=== PATIENT | female | born 1940 | race Caucasian/White ===

== ENCOUNTER 2023-06-16 01:19 | Inpatient (IN) | payer MEDICARE, OTHER, SELFPAY ==
[2023-06-15] VITALS (7 sets, daily range): BP systolic 153–170; BP diastolic 75–86; BMI 33.8
--- NOTE | 2023-06-15 22:31 | EDRN ---
[place] alert called at [address] Perez pt transported to CT on EMS stretcher at 2226.
--- NOTE | 2023-06-15 22:37 | ED.CVA ---
History of Present Illness
General
Chief Complaint: CVA/TIA Symptoms
Source: family (Daughter, son)
Exam Limitations: none
Time Seen by Provider: 06/15/23 22:30
Nursing documentation reviewed up to this point in time: agreed with
Onset of Stroke Symptoms
Onset of symptoms known: Yes
Date of onset of symptoms: 06/15/23
Time of onset of symptoms: 20:30
Time pt last seen normal is known: Yes
Date last time pt seen normal: 06/15/23
Time last time pt seen normal: 21:00
Travel History
Have you had any contact with someone who has COVID-19?: No
Do you have any symptoms of coronavirus? Fever > 100 degrees, chills, cough, shortness of breath, sore throat, loss of taste or smell, muscle aches, or headache?: No
History of Present Illness
History of Present Illness:
The patient is a 82-year-old female with a past medical history on atrial fibrillation who presents with paramedics for left-sided weakness that started at 8:30 PM this evening. Family reports that she just had a laminectomy done at [facility] this
past , which was 3 days ago. The laminectomy was done at L3-L4, and L4, L5. The family reports she is generally on Eliquis but has not had the Eliquis for at least 5 days. They report she has not restarted it since the surgery. Her
daughter reports that she last saw her mother normal at around 8:30 PM and around 9:00, she noticed severe weakness on the left side of the patient's body. Her daughter reports that briefly, she was able to move her left arm but then she was unable
to do so. Patient arrives with paramedics and is flaccid on the left. She has a gaze preference to the right. Stroke alert called
Past History
Past History
ED Past Medical History: Arrthythmia, HTN, Hypercholesterolemia and Hypothyroidism
ED Past Surgical History: Orthopedic
Social History
Tobacco: Non-smoker
Alcohol: Other
Drug: None
Personal: Other
Living: with family
Employment: Retired
Family History
Family History: Other
Phy Exam
Physical Exam
Physical Exam:
Physical Exam
General: Gaze preference to the right
Neck: supple.
Heart: s1/s2 regular rate and rhythm,
Lungs: no acute respiratory distress.
Abdomen: Soft, nontender
Neuro: alert. Left facial droop. No movement of left arm and left leg. Gaze preference to the right. Neglect to the left. Diminished sensation of left cheek, left arm and left leg
Skin: no rash
Psychiatric: well kept. interactive and cooperative
Extremities: no edema. no calf tenderness. negative homans. good distal pulses
Scores
NIH Stroke Score
Level of Consciousness: 0 - Alert
LOC Questions: 0-Answers both correctly
LOC Commands: 0-Performs both correctly
Best Horizontal Gaze: 2-Total gaze palsy
Visual Gutierrez: 1=Partial hemianopia
Facial Palsy: 2=Partial paralysis
Motor - Right Arm: 0=No drift 10 seconds
Motor - Left Arm: 4=No movement
Motor - Right Le-No drift 5 seconds
Motor - Left Le-No movement
Limb Ataxia: 0-Absent
Sensation: 1-Mild loss
Best Language: 1-Mild aphasia
Dysarthria: 0-Normal
Extinction and Inattention: 2-Total tiffany inattention
Total Score:: 17
MRS Score
Modified [facility] Scale (mRS): Moderately severe disability. Unable to attend to bodily needs/walk.
Score: 4
Course
Orders/Labs/Results
Orders:
Orders
06/15/23 22:30
CT Head W/o Cont STROKE ALERT Urgent
Comment:
Reason For Exam: L side flaccid
CT Head/Neck Ang STROKE ALERT Urgent
Comment:
Reason For Exam: L side flaccid
06/15/23 22:31
Electrocardiogram (*1) Urgent
Reason for Study: TIA/Stroke
EKG- Treatment ONCE
06/15/23 22:55
Tenecteplase [Tnkase] 22 mg Syringe [Syringe Non-Pump] 0 ml IV NOW
Provider explained risk/benefits to patient &/or caregiver?: Yes
06/15/23 22:57
Complete Blood Count/With Diff Urgent
Comprehensive Metabolic Panel Urgent
PTT Urgent
Prothrombin Time Urgent
Abnormal Lab Results
06/15/23
22:57
WBC 11.3 H 10^3/uL
(4.8-10.8)
RBC 3.80 L 10^6/uL
(4.20-5.40)
Hgb 11.9 L g/dL
(12.0-16.0)
Hct 35.3 L %
(37.0-47.0)
MCH 31.3 H pg
(27.0-31.0)
Abs Immat Gran (auto) 0.1 H 10^3/uL
(0-0.05)
Absolute Neuts (auto) 7.6 H 10^3/uL
(1.4-6.5)
Absolute Monos (auto) 1.7 H 10^3/uL
(0.1-0.6)
Lymphocytes % 16.6 L %
(20.5-51.1)
Monocytes % 14.6 H %
(1.7-9.3)
Sodium 132 L mmol/L
(135-145)
BUN 34 H mg/dl
(7-17)
Glucose 105 H mg/dl
(70-99)
AST 39 H U/L
(14-36)
Alkaline Phosphatase 36 L U/L
(38-126)
06/15/23 22:57
06/15/23 22:57
Vital Signs
Initial and Last Documented VS:
Initial Vital Signs
BP
170/86
06/15/23 23:00
Last Documented Vital Signs
Temp Pulse Resp BP Pulse Ox
97.9 F 74 24 160/85 97
06/15/23 23:03 06/15/23 23:45 06/15/23 23:45 06/15/23 23:37 06/15/23 23:53
MDM/Problems Addressed
Differential Diagnosis Includes:
Acute ischemic stroke, intracranial hemorrhage, meningitis
MDM/Problems Addressed:
Patient presents with acute left body weakness
Chronic conditions affecting care: Arrhythmia
Acute Exacerbation and/or Progression of Chronic Illness: HTN
*Radiology
Radiology exam reviewed: radiology read reviewed
*Pulse Oximetry
Patient hypoxic: no
*[place] Man Interpretation
Rate: normal
Interpretation: normal
Rhythm: sinus
*Critical Care Note
Total Time (30-74mins, 75-104mins- exclusive of procedures): 45 minutes
comment:
45 minutes of critical care given to the patient including frequent reassessments of her neurological status, speaking to the family, reviewing the patient's CAT scan and CTA as well as speaking to the hospitalist and neurologist
Patient Management
Discussion with other providers: Hospitalist and Other (Spoke to Dr. Rodriguez from neurology about patient condition)
Escalation/DeEscalation of care consider admission/obs:
I spoke extensively to the patient's daughter and son about the risk and benefit of giving TNK. They understand there is a risk of life-threatening bleeding, such as an intracranial hemorrhage that could cause permanent and disability. They
still want to proceed with the TNK. Dr. Rodriguez is comfortable giving the TNK even with patient's recent laminectomy. Patient has had not had Eliquis for about 1 week
ED Attending Note
-
Portions of this chart may have been created with voice recognition software.� Occasional wrong word or��sound alike� substitutions may have occurred due to the inherent limitations of voice recognition software.
Discharge Plan
Departure
Patient Disposition: Admit
Date of Disposition: 06/15/23
Time of Disposition: 23:07
Admit to: ICU
Presentation/result/management discussed w/ accepting MD/DO: Hospitalist
Patient with high blood pressure during this ER visit?: Yes
Condition: Critical
Covid-19: Not Applicable
Discharge Problem:
Acute ischemic stroke
Prescriptions:
No Action
atorvastatin 40 mg Tablet
40 mg PO DAILY
sotalol 80 mg Tablet
80 mg PO BID
levothyroxine 25 mcg Tablet
25 mcg PO DAILY
metoprolol succinate 25 mg Tablet Extended Release 24 Hr
25 mg PO BID
Calcium + Vitamin D 600 mg calcium- 200 unit Tablet
PO
Fish Oil Capsule
PO
Eliquis 5 mg Tablet
5 mg PO BID
Centrum
Interventions
Interventions:
ED- Fall Risk Assessment Last Done: 06/15/23 23:53
ED- Pulmonary Assessment Last Done: 06/15/23 23:53
ED- Neurological Assessment Last Done: 06/15/23 23:11
ED- Cardiac Assessment Last Done: 06/15/23 23:53
[2023-06-15 23:02] LABS: % Basophils 0.2 % (0-2); % Eosinophils 0.5 % (0-6); % Immature Granulocytes 0.4 % (0-0.5); % Lymphocytes 16.6 % (20.5-51.1); % Monocytes 14.6 % (1.7-9.3); % Neutrophils 67.7 % (42.2-75.2); Absolute Eosinophils 0.1 10^3/uL (0-0.7); Absolute Immature Granulocytes 0.1 10^3/uL (0-0.05); Absolute Lymphocytes 1.9 10^3/uL (1.2-3.4); Absolute Monocytes 1.7 10^3/uL (0.1-0.6); Absolute Neutrophils 7.6 10^3/uL (1.4-6.5); Hematocrit 35.3 % (37.0-47.0); Hemoglobin 11.9 g/dL (12.0-16.0); Mean Corp Hgb Conc. 33.7 g/dL (33.0-37.0); Mean Corpuscular Hgb 31.3 pg (27.0-31.0); Mean Corpuscular Volume 92.9 fL (81.0-99.0); Mean Platelet Volume 10.2 fL (7.4-10.4); Nucleated Red Blood Cells % 0 %; Platelet Count 162 10^3/uL (130-400); Red Cell Dist. Width 13.7 % (11.5-14.5); White Blood Cell Count 11.3 10^3/uL (4.8-10.8)
[2023-06-15 23:14] LABS: INR 1.05; PT 13.5 Sec (11.4-14.6)
[2023-06-15 23:15] LABS: ALT (SGPT) 14 U/L (0-35); APTT 23.9 Sec (23.4-35.0); AST (SGOT) 39 U/L (14-36); Albumin 3.5 g/dl (3.5-5.0); Alkaline Phosphatase 36 U/L (38-126); Blood Urea Nitrogen 34 mg/dl (7-17); Calcium 8.6 mg/dl (8.4-10.2); Carbon Dioxide 27 mmol/L (22-30); Chloride 100 mmol/L (98-107); Estimated Creatinine Clearance 48 ml/min; Glucose 105 mg/dl (70-99); Potassium 4.5 mmol/L (3.5-5.1); Sodium 132 mmol/L (135-145); Total Bilirubin 0.6 mg/dl (0.2-1.3); Total Protein 6.3 g/dl (6.3-8.2); eGFR > 60.00
[2023-06-15] MEDS: TNKASE 4.40000000000000036 MG IV (23:20)
[2023-06-16] VITALS (60 sets, daily range): BP systolic 107–193; BP diastolic 52–107; BMI 33.8; BMI 30.6
--- NOTE | 2023-06-16 00:10 | HPS.HSE ---
Family Physician
-
Family Physician: Stevie Valadez
Chief Complaint
-
Left Sided Weakness
History of Present Illness
Patient is an 82y F with PMH significant for hypertension and CAD who presents to ED complaining of left sided weakness. History obtained from patient and the family at the bedside.
Patient was recently hospitalized at [facility] where she underwent lumbar laminectomy (L3 - L5) on . She was discharged from the hospital yesterday and came home with her daughter who lives in the [facility]. Yesterday the patient felt
very well. Today, she was more fatigued and had more lower back discomfort. She was watching TV this evening with her daughter. Around 9:30 PM, daughter noted that patent was massaging her L hand and seemed somewhat agitated. She fell in and out
of sleep. Daughter attempted to wake her but had some difficulty. When patient did wake she was noted to have slurred speech and was not moving her L arm. Her gaze was unfocused. Daughter called 911 and patient was brought to the ED for further
evaluation.
Stroke alert was activated. CT imaging in the ED was essentially unremarkable.
Case was reviewed with Nerology and TNKase was administered in the ED.
At present, patient has R gaze preference and degree of L hemineglect. She has continued severe L weakness - though she has started to move the LUE to a small degree.
Patient was diagnosed with A-Fib in March 2023. She has been on DOAC with Eliquis since that time.
Patient's last dose of Eliquis was 06/08/23 - she then held it in preparation for her back surgery. She is scheduled to restart it on 06/20/23.
Medical History
Past Medical History
Past Medical History: Reports Other
Additional Past Medical History:
ASCVD
Hypertension
Hypothyroidism
Paroxysmal Atrial Fibrillation
Endometrial Cancer
Lumbar DDD
Past Surgical History: Reports Other
Additional Past Surgical History:
CABG x 3
Cataracts
CHANTELLE
Lumbar laminectomy (06/13/23)
Social History
Tobacco: Non-smoker
Alcohol: None
Drug: None
Family History
Family History: Other (Father: Prostate Cancer Mother: Multiple Myeloma)
Allergies / Home Medications
Allergies reflects when Allergies were last updated in [facility].
Home Medications with original date entered in [facility]
Allergy/Medication List:
Allergies
Allergy/AdvReac Type Severity Reaction Status Date / Time
Sulfa (Sulfonamide Allergy Unknown Verified 06/15/23 22:33
Antibiotics)
Home Medications
Centrum 06/15/23
apixaban 5 mg tablet (Eliquis) 5 mg PO BID 06/15/23
atorvastatin 40 mg tablet 40 mg PO DAILY 06/15/23
calcium carb-ergocalciferol (vit D2) 600 mg calcium-200 unit tablet tab PO 06/15/23
levothyroxine 25 mcg tablet 25 mcg PO DAILY 06/15/23
metoprolol succinate 25 mg tablet,extended release 24 hr 25 mg PO BID 06/15/23
omega-3 fatty acids PO 06/15/23
sotalol 80 mg tablet 80 mg PO BID 06/15/23
Review of Systems
-
History Source: Patient
A 12 point ROS was completed and negative except as noted: Yes
Constitutional: Denies Fever or Chills
Respiratory: Denies Cough or Trouble Breathing
Cardiac: Denies Chest Pain or Palpitations
Abdomen/GI: Denies Abdominal Pain, Nausea, Vomiting or Diarrhea
Musculoskeletal: Reports Other (Back Pain); Denies Joint Pain or Edema
Neurological: Reports Weakness and Numbness; Denies Headache
Psych: Denies Depression or Anxiety
Physical Exam
Vital Signs
Vital Signs
Temp Pulse Resp BP Pulse Ox
97.9 F 74 24 160/85 97
06/15/23 23:03 06/15/23 23:45 06/15/23 23:45 06/15/23 23:37 06/15/23 23:53
Physical Exam
General: Other (82y F in no acute distress. Hard of hearing. Evident R gaze preference and L hemineglect.)
HEENT: PERRLA and Other (Dry MM.)
Respiratory: Clear; No Wheezes, Rales or Rhonchi
Cardiac: S1/S2, Regular Rhythm and Murmur (II/ CONG)
GI: Soft, Non Tender, Non Distended and Normal Bowel Sounds
Musculoskeletal: No Clubbing, No Cyanosis and No Edema
Skin: Other ([place] in place over lumbar incision. No significant strikethrough.)
Neuro: Other (Dense L sided weakness. Some movement of the L arm / hand. Strength 0/5 in the LLE. Decreased sensation in the LLE > LUE.)
Laboratory Results
-
06/15/23 22:57
06/15/23 22:57
Laboratory Results
PT 13.5 Sec (11.4-14.6) 06/15/23 22:57
INR 1.05 06/15/23 22:57
APTT 23.9 Sec (23.4-35.0) 06/15/23 22:57
Total Bilirubin 0.6 mg/dl (0.2-1.3) 06/15/23 22:57
AST 39 U/L (14-36) H 06/15/23 22:57
ALT 14 U/L (0-35) 06/15/23 22:57
Alkaline Phosphatase 36 U/L (38-126) L 06/15/23 22:57
Impression/Plan
-
A/P: Patient is an 82y F with PMH significant for ASCVD, A-Fib and hypertension who presents to ED for evaluation of L sided weakness.
Acute Right Sided CVA with Dense Left Hemiparesis
- Admit to ICU for further evaluation and treatment.
- CT and CTA done in the ED are essentially unremarkable.
- TNKase administered in the ED.
- Monitor closely in the ICU.
- Follow serial neuro exams.
- Neuro evaluation, Solution Architect evaluation, etc.
- Follow for any new / worsening symptoms.
- PT / OT / Speech and PM&R evaluations.
- MRI 24 hours post-TNKase.
- Check fasting lipids, Hgb A1C, Echo.
- With history of A-Fib and recent interruption of Eliquis - ? embolic CVA.
Paroxysmal Atrial Fibrillation
- Monitor on telemetry.
- Continue current metoprolol and sotalol dosing.
- Continue to hold Eliquis (last dose was 06/07).
- Check Echo as noted above.
ASCVD
- Prior history of CAD s/p remote CABG.
- No recent symptoms of chest pain, etc.
- Continue statin therapy. Update lipid panel and adjust dosing if needed.
Lumbar DDD
s/p Lumbar Laminectomy
- s/p surgery done at [facility] on 06/13/23.
- Monitor for any bleeding or other changes at surgical site.
- Follow neurologic exam closely for any evidence of bilateral LE symptoms, etc.
Hypothyroidism
- Continue current T4 replacement.
DVT Prophylaxis: SCDs
Code Status: Full
[2023-06-16] MEDS: ZOFRAN 4 MG IV (03:51)
--- NOTE | 2023-06-16 04:30 | PTCARENOTE ---
~9833-9089: Patient arrived to the unit on a stretcher. The patient is awake and oriented x3. Pupils are +2 and sluggish. Stoke/NIH assessment performed with ED RN, Sandra. Patient's NIH 15. Patient has left facial droop, left arm weakness with
trace movement , left leg is unable to move, mild aphasia and dysarthria, some sensory loss, some visual and gaze loss. Atrial fibrillation on the monitor. Weak pulses to bilaterally. Patient verbalized that she is feeling sick. The patient then
started to vomit spence output-100 cc. BP 191/90, and RR 21. Arabella Burgos CRNP made aware and is at the bedside. Zofran and head CT ordered. Coarse breath sounds 1/[address] way up. No cough. The patient is on 2L/O2 nc with SpO2 at 97%. abdomen is round
and obese. Patient cleansed with CHG wipes. Purewick placed. Call ibrahim s within reach.
0340: Patient returned from CT scan. Assessment unchanged from the previous. Safety measures maintained.
--- NOTE | 2023-06-16 04:36 | W.PN.UPDATE ---
Update Note
Progress Note Update
0300- Patient arrived to the ICU and started vomiting, SBP 190s. Left facial droop, hemiparesis, left sided neglect, NIHSS 15. STAT Ct scan of the head ordered for vomiting post TNK to rule out bleed. Dr. Rodriguez, neurologist updated on patient's
vomiting and NIHSS, agreed with plan. Ct scan results: no hemorrhage noted.
[2023-06-16 05:58] LABS: Hematocrit 37.7 % (37.0-47.0); Hemoglobin 12.7 g/dL (12.0-16.0); Mean Corp Hgb Conc. 33.7 g/dL (33.0-37.0); Mean Corpuscular Hgb 31.1 pg (27.0-31.0); Mean Corpuscular Volume 92.4 fL (81.0-99.0); Mean Platelet Volume 10.1 fL (7.4-10.4); Platelet Count 230 10^3/uL (130-400); Red Blood Cell Count 4.08 10^6/uL (4.20-5.40); Red Cell Dist. Width 13.5 % (11.5-14.5); White Blood Cell Count 12.2 10^3/uL (4.8-10.8)
[2023-06-16 06:01] LABS: INR 1.02; PT 13.2 Sec (11.4-14.6)
[2023-06-16 06:02] LABS: APTT 30.1 Sec (23.4-35.0)
[2023-06-16 06:21] LABS: Blood Urea Nitrogen 31 mg/dl (7-17); Calcium 9.1 mg/dl (8.4-10.2); Carbon Dioxide 26 mmol/L (22-30); Chloride 105 mmol/L (98-107); Estimated Creatinine Clearance 52 ml/min; Glucose 109 mg/dl (70-99); HDL Cholesterol 61 mg/dl; LDL Cholesterol, Calculated 76 mg/dl; Magnesium 2.2 mg/dl (1.6-2.3); Phosphorus 4.2 mg/dl (2.5-4.5); Potassium 4.7 mmol/L (3.5-5.1); Sodium 136 mmol/L (135-145); Total Cholesterol 173 mg/dl (50-199); Triglyceride 182 mg/dl (10-149); Very Low Density Lipoprotein 36 mg/dl (0-30); eGFR > 60.00
--- NOTE | 2023-06-16 07:08 | PTCARENOTE ---
0600: Patient remains stable. Pt has trace movement with left arm and left leg. continues to be AAOx3. VSS.
0630: Pt unable to void since admission. Patient bladder scanned for 215 mL.
0650: Handoff report provided to incoming RN. Dual RN jessica/[facility] assessment completed.
--- NOTE | 2023-06-16 07:19 | CON.INTV ---
Consultation
Consultation Request
Date/Time Consultation Requested: 06/16/23
Date/Time Consultation Performed: 06/16/23
Performing Provider: Damaso
Reason for Consultation: ICU
Medical History
-
History of Present Illness:
Patient is a 82-year-old female with previous history of CAD, hypertension, PAF on Eliquis presenting to ED for complaints of left-sided weakness. She underwent recent lumbar laminectomy L3-L5 on 06/13/2023 at [facility] which was reportedly
uneventful. She was discharged home 06/15/2023 with development of increasing lethargy. On awakening, patient was noted to have acute onset slurred speech and left-sided weakness. She was brought in by her daughter. CT imaging in the ED negative
on prelim read. NIHSS was 17. TNK was administered in the ED based on symptoms. She is taking Eliquis for her atrial fibrillation which was held for surgery. She was not scheduled to resume it until 06/20/2023.
She is admitted to ICU post TNK for closer monitoring.
Past Medical History
Past Medical History: Other (see list below)
Social History
Tobacco: Non-smoker
Alcohol: None
Drug: None
Family History
Family History: Reviewed & Not Pertinent
Allergies / Home Medications
Allergies
Allergy/AdvReac Type Severity Reaction Status Date / Time
Sulfa (Sulfonamide Allergy Unknown Verified 06/15/23 22:33
Antibiotics)
Home Medications
Medication Instructions Recorded Confirmed Last Taken Type
Centrum 06/15/23 Unknown History
apixaban 5 mg tablet (Eliquis) 5 mg PO BID 06/15/23 06/15/23 Unknown History
atorvastatin 40 mg tablet 40 mg PO DAILY 06/15/23 06/15/23 Unknown History
calcium carb-ergocalciferol (vit tab PO 06/15/23 Unknown History
D2) 600 mg calcium-200 unit tablet
levothyroxine 25 mcg tablet 25 mcg PO DAILY 06/15/23 06/15/23 Unknown History
metoprolol succinate 25 mg 25 mg PO BID 06/15/23 06/15/23 Unknown History
tablet,extended release 24 hr
omega-3 fatty acids PO 06/15/23 Unknown History
sotalol 80 mg tablet 80 mg PO BID 06/15/23 06/15/23 Unknown History
Review of Systems
-
History Source: Patient
All other systems: Negative unless noted
Vitals / Labs / Diagnostic Testing
Vital Signs
Temp Pulse Resp BP Pulse Ox
98.5 F 72 14 139/69 96
06/16/23 03:00 06/16/23 07:07 06/16/23 07:07 06/16/23 07:07 06/16/23 07:07
Lab Data
06/16/23 05:38
06/16/23 05:38
Laboratory Results
06/15/23 06/16/23
22:57 05:38
PT 13.5 13.2
INR 1.05 1.02
APTT 23.9 30.1
Diagnostic Testing:
Physical Exam
-
HEENT: Normocephalic, Anicteric, Moist Mucous Membranes and Other (R gaze preference)
Cardiovascular: S1/S2 and Regular Rhythm
Respiratory: Clear and Non-Labored Respirations
GI: Soft, Non Distended and Non Tender
Neurology: Awake, Alert and Other (L sided weakness, inconsistently following commands, somewhat expressive aphasia/repetitive responses)
Skin: Warm and Dry
General: Comfortable and Other (NAD)
Assessment
-
Patient is a 82-year-old female with previous history of CAD, hypertension, PAF on Eliquis presenting to ED for complaints of left-sided weakness and lethargy post recent lumbar laminectomy on 06/13/2023 at [facility] (Eliquis on hold for procedure).
CT imaging in the ED negative; NIHSS was 17. TNK was administered. She is admitted to ICU post TNK for closer monitoring.
Acute CVA s/p TNK 06/16/23
Acute onset L sided weakness, slurred speech, R gaze preference
Recent procedure, L3-L5 Laminectomy @[facility] 06/13/23, Eliquis held
Mild leukocytosis
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
CAD s/p CABG x 3
Lumbar laminectomy (06/13/23)
Hypertension
Hypothyroidism
Paroxysmal Atrial Fibrillation
Endometrial Cancer s/p CHANTELLE
Lumbar DDD
Cataracts
Plan
Acute CVA s/p TNK, NIHSS initially 17
Still having L sided paralysis, R gaze preference
Possible expressive aphasia as her responses are limited/repetitive
Denies pain at this time.
Pain/sedation: PRN
RASS goals: [address] reviewed
Repeat CT per team, Neuro following
PT/OT
Hemodynamically stable, not requiring pressors.
Cardiac history reviewed--HTN, CAD, PAF off Eliquis
No prior ECHO for review
Resume home meds as able, BP management post CVA
Monitor on telemetry
Oxygen needs: stable on room air
Prior history of lung disease: none
Supplemental O2 as indicated to maintain sats > 89%
CXR/CT reviewed indicating NAD, wide mediastinum possibly falsely due to low lung volumes
No chest pain, or need for further imaging
NPO, resume diet when able
Aspiration precautions, HOB > 30 degrees
Speech therapy eval
Lawn Specialist recommendations
May need DHT if not improving
GI prophylaxis if indicated for mechanical ventilation >48 hours, prior history of GERD, stress ulcer formation in the critically ill
Creat at baseline, no history of renal disease
Void trials
Follow urine output, critical I/Os
Replete electrolytes as needed
No signs/symptoms suspicious for infectious etiology at this time
Observe off antibiotics for now
Follow fever trend, WBC count
CBC stable, no signs of bleeding or coagulopathy.
DVT prophylaxis as assessed based on risk, including mechanical SCDs
Can transfuse if indicated for Hb <7, plt < 10
INR WNL
No prior h/o diabetes
Monitor accuchecks PRN/SS coverage if needed
H/o hypothyroidism, can continue on home synthroid dose
We will follow
Diagnostic Data
Chest X-Ray: low lung volumes/widened mediastinum; no comparative films
CT Scan:
Echo:
PFT's:
Reports and relevant images were personally reviewed.
-----
Critical Care time 55 mins -- The patient is admitted for acute critical illness for the treatment of vital organ failure and/or prevention of further life-threatening conditions. Total care includes time spent in review of history, physical exam,
medications, hemodynamic/ventilator parameters, laboratory data, imaging and discussion with house staff, pharmacy, respiratory therapy, physics department chair, and nursing.
[2023-06-16] MEDS: SYNTHROID 25 MCG PO (08:57)
[2023-06-16] MEDS: BETAPACE 80 MG PO ×2 (08:57→21:10)
[2023-06-16] MEDS: TOPROL XL 25 MG PO ×2 (08:57→21:10)
[2023-06-16] MEDS: LIPITOR 40 MG PO (08:57)
--- NOTE | 2023-06-16 09:13 | PTCARENOTE ---
pt wakes to name. douglas. states no pain. passed swallow eval. nihss done with night nurse as documented. left facial droop left arm leg min movement. slurred speech. left visual field cut. lack of sensation on left side. pt able to take pills
with water. pure wick in place.
--- NOTE | 2023-06-16 09:38 | CON.NEURO ---
Neuro Assessment/Plan
Assessment
IMPRESSIONS/RECOMMENDATIONS:
Abrupt onset left sided weakness following discontinuance of anticoagulant to undergo lumbar laminectomy
Most likely secondary to acute ischemic right MCA territory stroke
Treated with tenecteplase (TNK) last evening
Plan
� goal blood pressure over the next 24 hours of receipt of tenecteplase would be less than 180/105 mmHg, then normotension
� check MRI of the brain within 22-32 hours of TNK without contrast for localization of the stroke
� hold all antiplatelets, OAC meds, DOAC meds, heparinoids for 24 hours following TNK
� Continue atorvastatin 40 mg at bedtime
� goal blood glucose levels for patient would be less than 180 mg/dL
� Speech, PT, OT evaluations needed
� Physiatry consultation warranted
� DVT prophylaxis with sequential compression devices over next 24 hours, can be started on Enoxaparin subcutaneous for DVT prophylaxis beginning 24 hours after TNK provision.
� medical educational materials will be provided
Will continue to follow patient.
Consultation
Order
Date of Consultation: 06/16/23
Requesting Provider: Emergency department physician
Reason for Consult: Stroke alert
Subjective/Objective
Subjective Data
Date of Service: June 16, 2023
Right-handed
Patient was reportedly in her usual state of health until last evening at which time the patient was described as having sudden onset left-sided weakness. The patient had discontinued her usual apixaban 5 days ago to undergo a lumbar laminectomy at
[facility]. The patient did not restart her apixaban since that time. The procedure was performed 3 days ago. The patient has not had a prior episode which was similar. No known modifying factors. The patient herself is unable divide any
accompanying history.
Objective Data
Vital Signs
Temp Pulse Resp BP Pulse Ox
36.9 C 88 10 150/100 96
06/16/23 07:39 06/16/23 09:00 06/16/23 09:00 06/16/23 09:00 06/16/23 09:10
Lab Results
06/16/23 05:38
06/16/23 05:38
PT 13.2 Sec (11.4-14.6) 06/16/23 05:38
INR 1.02 06/16/23 05:38
APTT 30.1 Sec (23.4-35.0) 06/16/23 05:38
Sodium 136 mmol/L (135-145) 06/16/23 05:38
Potassium 4.7 mmol/L (3.5-5.1) 06/16/23 05:38
BUN 31 mg/dl (7-17) H 06/16/23 05:38
Glucose 109 mg/dl (70-99) H 06/16/23 05:38
Calcium 9.1 mg/dl (8.4-10.2) 06/16/23 05:38
Phosphorus 4.2 mg/dl (2.5-4.5) 06/16/23 05:38
LDL Cholesterol, Calc 76 mg/dl 06/16/23 05:38
Patient Allergies
Sulfa (Sulfonamide Antibiotics) Allergy (Verified 06/15/23 22:33)
Unknown
CVA Assessment
Onset of Stroke Symptoms
Onset of symptoms known: Yes
Date of onset of symptoms: 06/15/23
Time of onset of symptoms: 20:30
Time pt last seen normal is known: Yes
Date last time pt seen normal: 06/15/23
Time last time pt seen normal: 21:00
NIH Stroke Score
Level of Consciousness: 0 - Alert
LOC Questions: 1-Answers one correctly
LOC Commands: 1-Performs one correctly
Best Horizontal Gaze: 1-Partial gaze palsy
Visual Gutierrez: 3=Bilateral hemianopia
Facial Palsy: 0=Normal, symmetrical
Motor - Right Arm: 0=No drift 10 seconds
Motor - Left Arm: 2=Partial vs. gravity
Motor - Right Le-No drift 5 seconds
Motor - Left Le-None vs. gravity
Limb Ataxia: 0-Absent
Sensation: 0-Normal
Best Language: 0-No aphasia
Dysarthria: 0-Normal
Extinction and Inattention: 0-No abnormality
Total Score:: 11
Tenecteplase Contraindications
Inclusion and Exclusion criteria reviewed: Yes
IAT Contraindications: Imaging doesn't show large vessel occlusion as cause of stroke
Review of Systems
-
Unable to obtain full review of systems at this time due to: Other (Encephalopathy)
History Source: Patient
All other systems: Reviewed and negative
Neuro: Negative Dizzy or Headache
Physical Exam
-
General: No Apparent Distress, Appears Stated Age and Other (Overweight)
Eyes: OU Absent Papilledema, Round OU, Mcfarland Conjunctivae and No Ptosis
HEENT: Anicteric and Moist Mucous Membranes
Neck: Full Range of Motion
Respiratory: No Dyspnea
Cardiac: No JVD
GI: Non-distended
Skin: Unremarkable
Extremities: No Clubbing, No Cyanosis and No Edema
Psych: Negative Intact Judgement/Insight
Extended Neurological Exam
Mood & Affect: Mood Unremarkable and Affect Unremarkable
Attention Span & Concentration: Awake, Alert, Interactive and Moderate Difficulty with 2 Step Request
Memory: Able to Recall (own name) and Recalls Short Term (recent back surgery); Negative Unable to Recall Personal History
Tremor: Hand Tremor Absent and Head Tremor Absent
Involuntary Movement: None
Speech: Quality Unremarkable and Quantity Unremarkable
Cranial Nerve II: Left Eye: Pupillary Reactivity Unremarkable, Pupillary Size Unremarkable and Visual Gutierrez Reduced (On the left)
Cranial Nerve II: Right Eye: Pupillary Reactivity Unremarkable, Pupillary Size Unremarkable and Visual Gutierrez Reduced (On the left)
Cranial Nerves III, IV, : Extraocular Movement: Negative Extraocular Movement Full in all Directions (Mildly restricted with extreme left gaze conjugately; right gaze preference)
Cranial Nerve V: Facial Sensation: Intact to Light Touch
Cranial Nerve VII: Facial Symmetry: Normal Facial Symmetry
Cranial Nerve VIII: Hearing: Unremarkable Hearing to Normal Conversational Volume
Cranial Nerves IX, X: Palate Movement: Palate Elevation Symmetric
Cranial Nerve XI: Shoulder Shrug: Reduced on Left; Negative Reduced on Right
Cranial Nerve XII: Tongue Protusion: Midline
Muscle Strength, Overall: Reduced on Left (4 - out of 5 left upper extremity, 1 out of 5 left lower extremity)
Muscle Bulk & Tone: Bulk Unremarkable and Tone Unremarkable
Deep Tendon Reflexes: Absent Throughout
Touch Sensation: Unremarkable
Coordination: Unable to Assess (On the left); Negative Hepokr-ogdv-hhuuhc Testing Unremarkable (On the right)
Babinski Sign: Present on Right; Negative Present on Left
Gait & Station: Unable to Assess
Data Reviewed
-
CT Head: Report Reviewed
Labs: Report Reviewed
Reviewed with: Physician and Nurse
Old Records: Summarized
Medications
-
Active Medications
Generic Name Dose Route Start Last Admin
Trade Name Freq PRN Reason Stop Dose Admin
Acetaminophen 650 mg 06/16/23 04:23
Acetaminophen 325 Mg Tablet PO 07/14/23 04:22
Q4HPRN PRN
GARDUNO, mild pain, or temp >100.4F
Atorvastatin Calcium 40 mg 06/16/23 08:00 06/16/23 08:57
Atorvastatin (Lipitor) 40 Mg Tablet PO 07/14/23 07:59 40 mg
DAILY SANDRO Administration
Hydralazine HCl 5 mg 06/16/23 04:23
Hydralazine 20 Mg/Ml Vial IV 07/14/23 04:22
Q4HPRN PRN
BP > 180/105 mmHg
Levothyroxine Sodium 25 mcg 06/16/23 08:00 06/16/23 08:57
Levothyroxine 25 Mcg Tablet PO 07/14/23 07:59 25 mcg
DAILY SANDRO Administration
Metoprolol Succinate 25 mg 06/16/23 08:00 06/16/23 08:57
Metoprolol 25 Mg Extended Release Tablet PO 07/14/23 07:59 25 mg
BID SANDRO Administration
Sodium Chloride 0 flush 06/16/23 05:00
Sodium Chloride 0.9% (Flush) Syringe IV 07/14/23 04:59
PER PROTOCOL SANDRO
Sotalol HCl 80 mg 06/16/23 08:00 06/16/23 08:57
Sotalol 80 Mg Tablet PO 07/14/23 07:59 80 mg
BID SANDRO Administration
Home Medications
Medication Instructions Recorded
Centrum 06/15/23
apixaban 5 mg tablet (Eliquis) 5 mg PO BID 06/15/23
atorvastatin 40 mg tablet 40 mg PO DAILY 06/15/23
calcium carb-ergocalciferol (vit tab PO 06/15/23
D2) 600 mg calcium-200 unit tablet
levothyroxine 25 mcg tablet 25 mcg PO DAILY 06/15/23
metoprolol succinate 25 mg 25 mg PO BID 06/15/23
tablet,extended release 24 hr
omega-3 fatty acids PO 06/15/23
sotalol 80 mg tablet 80 mg PO BID 06/15/23
Past History
Past History
ED Past Medical History: Arrthythmia (AFib), CAD, Cancer (Endometrial), HTN, Hypercholesterolemia and Hypothyroidism
ED Past Surgical History: Cardiac (CABG x3), Gynecological (CHANTELLE), Orthopedic (Lumbar laminectomy L3-5) and Other (cataracts)
Social History
Tobacco: Non-smoker
Alcohol: Other
Drug: None
Personal: Other
Living: with family
Employment: Retired
Family History
Family History: Other (reviewed and non-contributory)
--- NOTE | 2023-06-16 09:49 | PTOTSP ---
Clinical Swallow Evaluation
82F admitted for CVA workup p/w impaired oropharyngeal swallow 2/2 delayed swallow initiation with prolonged bolus holding. Increased aspiration risk at this time 2/2 left sided facial weakness in the presence of possible R sided CVA. Increased
lethargy and altered mentation.
Recommendations:
1) Puree (IDDSI 4), thin liquids (IDDSI 0)
2) Medications as tolerated
3) Feeding strategies: ONLY feed when awake and alert; partial feeding assistance 2/2 increased lethargy; small bites; single sips; HOB elevated
4) Aspiration precautions
5) MANAGER ATHLETICS service to follow
[2023-06-16 09:51] LABS: Glycohemoglobin (HgbA1c) 5.6 % (4.0-5.6)
--- NOTE | 2023-06-16 12:50 | PTCARENOTE ---
pt has dressing over lower back from recent back surgery. pt daughter says she has ai under dressing. spoke to mri about clearance. group product manager on saturday will confirm if she is able to have mri done.
--- NOTE | 2023-06-16 13:32 | CM ---
CM following re: discharge planning.
Reviewed pt's chart, met with pt and pt's daughter Angélica at bedside.
Pt is an 82 year old female, admitted with primary dx of Acute CVA s/p TNK 06/16/23.
Per daughter, pt lives alone in a 2SH in [place], 6+6 steps to enter, has 2 supportive children. 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 No DME, VN or SNF history.
PT, OT, Paperhanger Assistant consult requested to determine a level of care at discharge.
Pt's daughter requested [facility]. CM will make a referral to [facility]
PCP: Stevie Valadez
Pharmacy: [facility].
D/C plan: [facility].
CM will follow with discharge plan updates as hospitalization progresses
--- NOTE | 2023-06-16 16:21 | W.PN.HOSP.TC ---
Today's Communication/Plan
-
continue in ICU
Assessment / Plan
Assessment / Plan
A/P:� Patient is an 82y F with PMH significant for ASCVD, A-Fib and hypertension who presents to ED for evaluation of L sided weakness.
Acute Right Sided CVA with Dense Left Hemiparesis
�- Admit to ICU for further evaluation and treatment.
�- CT and CTA done in the ED are essentially unremarkable.
�- TNKase administered in the ED.
�- Monitor closely in the ICU.
�- Follow serial neuro exams.
�- Neuro evaluation, Geospatial Intelligence Analyst evaluation, etc.
�- Follow for any new / worsening symptoms.
�- PT / OT / Speech and PM&R evaluations.
�- MRI 24 hours post-TNKase.
�- Check fasting lipids, Hgb A1C, Echo.
�- With history of A-Fib and recent interruption of Eliquis - ? embolic CVA.
As per Speech eval, will change diet to Pureed with clear liquids
Paroxysmal Atrial Fibrillation
�- Monitor on telemetry.
�- Continue current metoprolol and sotalol dosing.
�- Continue to hold Eliquis (last dose was 06/07).
�- Check Echo as noted above.
ASCVD
�- Prior history of CAD s/p remote CABG.
�- No recent symptoms of chest pain, etc.
�- Continue statin therapy.� Update lipid panel and adjust dosing if needed.
Lumbar DDD
s/p Lumbar Laminectomy
�- s/p surgery done at [facility] on 06/13/23.
�- Monitor for any bleeding or other changes at surgical site.
�- Follow neurologic exam closely for any evidence of bilateral LE symptoms, etc.
Hypothyroidism
�- Continue current T4 replacement.
DVT Prophylaxis:� SCDs
Code Status:� Full
Anticipated Discharge: > 48 hours
Subjective/Interval History
-
Date of Service: June 16, 2023
Does not appear to be in distress
Objective Data
-
Labs:
Laboratory Results
06/16/23
05:38
WBC 12.2 H
Hgb 12.7
Hct 37.7
Plt Count 230 D
PT 13.2
INR 1.02
APTT 30.1
Sodium 136
Potassium 4.7
Chloride 105
Carbon Dioxide 26
BUN 31 H
Creatinine 0.8
Glucose 109 H
Calcium 9.1
Vital Signs:
Vital Signs
Temp Pulse Resp BP Pulse Ox
97.7 F 70 18 137/62 96
06/16/23 15:17 06/16/23 16:00 06/16/23 16:00 06/16/23 16:00 06/16/23 14:30
Review of Systems
-
History Source: Family (son and dgt at bedside) and Coordinated Provider
Constitutional: Reports Fever
Respiratory: Reports No Symptoms; Denies Trouble Breathing
Cardiac: Reports No Symptoms; Denies Chest Pain
Physical Exam
-
General: Well Developed, Well Nourished and No Apparent Distress
HEENT: Normocephalic, Atraumatic and Moist Mucous Membranes
Respiratory: Clear to Auscultation; Negative Wheezes, Rales or Rhonchi
Cardiac: Regular Rhythm and S1/S2
GI: Soft, Nontender and Nondistended
Musculoskeletal: No Clubbing, No Cyanosis and No Edema
Neuro: Awake, Alert and Other (noncommunicative); Negative No Motor Deficits (left sided weakness, now moving left arm)
[2023-06-16] MEDS: TYLENOL 650 MG PO ×2 (16:31→21:57)
--- NOTE | 2023-06-16 20:00 | PTCARENOTE ---
Received pt resting in bed, oriented x3. NIH handoff completed = 12. [place]. L visual field cut, L sided weakness, mild L facial droop, + ataxia. No complaints of pain at this time. SR with PACs on tele. HR 60s. BP 140s/60s. Weak DPs. Afebrile. On 2L
NC, spo2 96%. Lungs diminished. + bowel sounds. Pureed diet- does not wish to eat dinner. Tolerating thin liquids. Purewick in place with yellow UO. L wrist #20 patent and capped. Turning q2. Neuro checks ongoing as ordered.
[2023-06-17] VITALS (30 sets, daily range): BP systolic 96–158; BP diastolic 54–109; PULSE 69; O2SAT 92; BMI 29.7
--- NOTE | 2023-06-17 00:36 | PTCARENOTE ---
Pt reassessed. Slightly more movement noted in LUE and LLE. Pt. drowsy but easily arousable. No complaints at this time. VSS.
[2023-06-17 04:26] LABS: Hematocrit 36.6 % (37.0-47.0); Hemoglobin 12.3 g/dL (12.0-16.0); Mean Corp Hgb Conc. 33.6 g/dL (33.0-37.0); Mean Corpuscular Volume 92.2 fL (81.0-99.0); Mean Platelet Volume 10.2 fL (7.4-10.4); Platelet Count 229 10^3/uL (130-400); Red Blood Cell Count 3.97 10^6/uL (4.20-5.40); Red Cell Dist. Width 13.2 % (11.5-14.5); White Blood Cell Count 10.3 10^3/uL (4.8-10.8)
[2023-06-17] MEDS: ZOFRAN 4 MG IV (04:31)
[2023-06-17 04:50] LABS: Blood Urea Nitrogen 21 mg/dl (7-17); Calcium 8.8 mg/dl (8.4-10.2); Carbon Dioxide 27 mmol/L (22-30); Chloride 108 mmol/L (98-107); Estimated Creatinine Clearance 52 ml/min; Glucose 94 mg/dl (70-99); Potassium 4.3 mmol/L (3.5-5.1); Sodium 138 mmol/L (135-145); eGFR > 60.00
--- NOTE | 2023-06-17 05:29 | PTCARENOTE ---
Pt had some nausea after bathing and moving around in bed. MANDREL PULLER notified- zofran given and was relieved within a few minutes. Mild improvement in left leg strength. Speech clear. Foam to sacrum + lower back remain intact. Joanne care + mouth care
provided
--- NOTE | 2023-06-17 08:11 | W.PN.NEURO.1 ---
Today's Communication / Plan
-
-Would continue aspirin 81 mg daily given degree of hemorrhagic conversion is mild and has had recent ischemic stroke
-Continue to hold Apixaban for now
-Tentatively would plan on restarting Apixaban for anticoagulation and stopping aspirin on 06/24, 10 days after stroke symptoms started
-Goal normotension, aim for systolic blood pressure maximum less than 180
-PT/OT and speech therapies
-Anticipate will need acute rehab when ready for discharge
-Okay for moving out of ICU status at this point
-Neurologic checks and NIH scales
-Treat heart rate and any RVR from atrial fibrillation
Will continue to follow
Neuro Assessment/Plan
Assessment
82-year-old woman with recent lumbar laminectomy and had her regular anticoagulation for atrial fibrillation held after the procedure presented to hospital with symptoms of acute stroke with left arm weakness and received tenecteplase
MRI brain demonstrates a mild amount of hemorrhagic conversion
CT head noncontrast the night before did not show any hemorrhage
Patient with no neurologic deterioration since TNK
Etiology is presumed due to cardiac embolism from atrial fibrillation given she was off anticoagulation with the recent major spine surgery
Subjective/Objective
Subjective Data
Date of Service: June 17, 2023
No acute events overnight, denies headache, is hard of hearing, says she will be patient and understands stroke is a long recovery
Objective Data
Vital Signs
Temp Pulse Resp BP Pulse Ox
98.4 F 61 17 135/60 94
06/17/23 07:28 06/17/23 07:00 06/17/23 07:00 06/17/23 07:00 06/17/23 07:48
Lab Results
06/17/23 04:07
06/17/23 04:07
PT 13.2 Sec (11.4-14.6) 06/16/23 05:38
INR 1.02 06/16/23 05:38
APTT 30.1 Sec (23.4-35.0) 06/16/23 05:38
Sodium 138 mmol/L (135-145) 06/17/23 04:07
Potassium 4.3 mmol/L (3.5-5.1) 06/17/23 04:07
BUN 21 mg/dl (7-17) H 06/17/23 04:07
Glucose 94 mg/dl (70-99) 06/17/23 04:07
Calcium 8.8 mg/dl (8.4-10.2) 06/17/23 04:07
Phosphorus 4.2 mg/dl (2.5-4.5) 06/16/23 05:38
LDL Cholesterol, Calc 76 mg/dl 06/16/23 05:38
Patient Allergies
Sulfa (Sulfonamide Antibiotics) Allergy (Verified 06/15/23 22:33)
Unknown
Review of Systems
-
History Source: Patient
All other systems: Reviewed and negative
Constitutional: No Symptoms
EENT: No Symptoms Reported
Respiratory: No Symptoms
Cardiac: No Symptoms
Abdomen/GI: No Symptoms
Genitourinary: No Symptoms
Musculoskeletal: No Symptoms
Skin: No Symptoms
Neuro: Weakness and Speech Problem
Endocrine: No Symptoms
Hematologic / Lymphatic: No Symptoms
Allergy / Immunology: No Symptoms
Physical Exam
-
General: Comfortable
Eyes: No Ptosis
HEENT: Normocephalic
Neck: No Bruits Bilaterally
Respiratory: Clear to Auscultation
Cardiac: Regular Rhythm
GI: Normal Bowel Sounds
Skin: Unremarkable
Extremities: No Clubbing
Psych: Unremarkable
Extended Neurological Exam
Attention Span & Concentration: Awake, Alert and Interactive; Negative Lethargic
Memory: Able to Recall
Tremor: Hand Tremor Absent
Involuntary Movement: None
Speech: Dysarthric; Negative Expressive Aphasia or Receptive Aphasia
Cranial Nerve II: Left Eye: Pupillary Reactivity Unremarkable, Pupillary Size Unremarkable and Visual Gutierrez Intact
Cranial Nerve II: Right Eye: Pupillary Reactivity Unremarkable, Pupillary Size Unremarkable and Visual Gutierrez Intact
Cranial Nerves III, IV, : Extraocular Movement: Extraocular Movement Full in all Directions
Cranial Nerve VII: Facial Symmetry: Other (Left facial weakness)
Muscle Strength, Overall: Other (Left arm flaccid 0/5, left leg 2/5)
Muscle Bulk & Tone: Reduced Tone
Deep Tendon Reflexes: Trace Throughout
Touch Sensation: Unremarkable
Data Reviewed
-
CT-A: Report Reviewed and Image Reviewed
MRI Head: Report Reviewed and Image Reviewed
Labs: Report Reviewed
[2023-06-17] MEDS: LIPITOR 40 MG PO (08:34)
[2023-06-17] MEDS: BETAPACE 80 MG PO ×2 (08:35→20:21)
[2023-06-17] MEDS: SYNTHROID 25 MCG PO (08:35)
[2023-06-17] MEDS: TOPROL XL 25 MG PO (08:35)
[2023-06-17] MEDS: ASPIR LOW (ENTERIC COATED) 81 MG PO (08:35)
[2023-06-17] MEDS: TYLENOL 650 MG PO ×2 (08:42→20:46)
--- NOTE | 2023-06-17 09:33 | PTCARENOTE ---
Pt received from fast food shift lead RN. NIHSS performed with outgoing RN. NIHSS scored at a 10 for L sided weakness, decreased sensation and a small L sided field cut that affects her reading. Pt is Ox3, very hard of hearing, somewhat forgetful. NSR on
tele with frequent PAC's. Knee high SCD's in place. Breath sounds diminished, 94% on RA. Poor appetite, pt has no motivation to eat, had to convince her to eat half a yogurt. Purewick in place draining clear yellow urine. Lower back foam in place
covering ai from Laminectomy. L FA IV intact. Call ibrahim within reach, pt makes needs known.
--- NOTE | 2023-06-17 09:43 | W.PN.INTV ---
Today's Communication / Plan
Recommendations
Continue frequent neurological checks
For MRI later today
Continue antihypertensive
Physical therapy/Occupational Therapy per protocol
Possible transfer to telemetry later today if MRI shows no acute abnormalities.
Assessment
-
Patient is a 82-year-old female with previous history of CAD, hypertension, PAF on Eliquis presenting to ED for complaints of left-sided weakness and lethargy post recent lumbar laminectomy on 06/13/2023 at [facility] (Eliquis on hold for procedure).
CT imaging in the ED negative; NIHSS was 17. TNK was administered. She is admitted to ICU post TNK for closer monitoring.
Acute CVA s/p TNK 06/16/23
Acute onset L sided weakness, slurred speech, R gaze preference
Recent procedure, L3-L5 Laminectomy @[facility] 06/13/23, Eliquis held
Mild leukocytosis
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
CAD s/p CABG x 3
Lumbar laminectomy (06/13/23)
Hypertension
Hypothyroidism
Paroxysmal Atrial Fibrillation
Endometrial Cancer s/p CHANTELLE
Lumbar DDD
Cataracts
Plan
Acute CVA s/p TNK, NIHSS initially 17
-
Left-sided weakness not significantly improved.
-
CT head 06/16/2023: Showed no acute abnormality. There is diffuse cortical and cerebellar atrophy.
Continue with frequent neurological checks
Slight improvement on physical exam compared to yesterday.
-
For MRI later today.
Physical therapy/Occupational Therapy/physiatry consultation.
-
Hemodynamically stable, not requiring pressors.
Cardiac history reviewed--HTN, CAD, PAF off Eliquis, to be restarted later point. Defer to neurology.
Antihypertensive restarted. Patient on sotalol. Dose may need to be adjusted eventually- GFR, discussed with pharmacy. Can be done in the outpatient setting.
Continue software development leader.
-
Supplemental O2 as indicated to maintain sats > 89%
CXR/CT reviewed indicating NAD, wide mediastinum possibly falsely due to low lung volumes
No chest pain, or need for further imaging
-
Tolerating diet. Cleared by speech pathology.
Aspiration precautions, HOB > 30 degrees
Leukocytosis resolved.
No signs/symptoms suspicious for infectious etiology at this time
Observe off antibiotics for now
No prior h/o diabetes
Monitor accuchecks PRN/SS coverage if needed
H/o hypothyroidism, can continue on home synthroid dose
After obtaining MRI, if there is no hemorrhagic conversion. Will transfer to telemetry. If transferred to telemetry critical care team will sign off.

Diagnostic Data
Chest X-Ray: low lung volumes/widened mediastinum; no comparative films
CT Scan:
Echo:
PFT's:
Reports and relevant images were personally reviewed.
-----
Subjective Dataa
Subjective Data
Date of Service:
Date of Service: June 17, 2023
Chief Complaint: Color Blender Follow Up (CVA status post thrombolysis)
Subjective:
Patient reports no new complaints. Denies any headache or blurry vision.
Eating breakfast without difficulties.
Denies nausea or vomiting.
Review of Systems
General: Fever (n)
Cardiopulmonary: Dyspnea (none at rest), Cough (n) and Chest Pain (n)
GI: Abdominal Pain (n)
Neuro: Headache (n) and Dizziness (n)
Objective Data
Data Reviewed
Vital Signs / I&O / Oxygen:
Vital Signs
Temp Pulse Resp BP Pulse Ox
98.4 F 63 17 134/58 93
06/17/23 07:28 06/17/23 08:35 06/17/23 08:30 06/17/23 08:35 06/17/23 08:30
Intake and Output
06/16/23 06/17/23 06/18/23
06:59 06:59 06:59
Intake Total 420 / 420
Output Total 1350 / 1350
Balance -930 / -930
SaO2 93
Nasal Cannula flow liters per 2
minute
Physical Exam
General: Respiratory Distress
HEENT: Normocephalic
Cardiovascular: S1-S2
Respiratory: Clear and Non-Labored Respirations
GI: Soft and Non Distended
Neurology: Awake, Alert, Other (Following commands, coughing on demand. Currently eating breakfast.) and Other (Left hemeplegia. )
Skin: Warm
Labs/Micro/Reports
Lab Data
06/17/23 04:07
06/17/23 04:07
Microbiology
06/16/23 05:38 Nose MRSA Screen - Final
No Methicillin Resistant Staphylococcus aureus isolated.
--- NOTE | 2023-06-17 11:04 | PHANOTE ---
Med rec note- called patient family provide, patient when asked question about her medication she stated what ever they give me, i reviewed faxed from [place] with current med rec and corrected changes, also called patient daughter just to double
check the [place] list is correct
[2023-06-17] MEDS: OFIRMEV 100 IV (11:21)
--- NOTE | 2023-06-17 11:59 | W.PN.UPDATE ---
Addendum entered and electronically signed by Rojas Barragan MD 06/17/23 12:01:
Neurology has been notified.
Original Note:
Update Note
Progress Note Update
MRI results noted: Hemorrhagic conversion with cytotoxic edema.
Neurological examination, unchanged. Left hemiparesis noted. Continues to favor right-sided gaze.
Now with rapid atrial fibrillation, after coming from MRI complaining of back pain. Recent laminectomy.
IV Tylenol was given.
Heart rate has not improved. Slightly hypertensive.
Will add IV metoprolol.
Currently on oral sotalol and oral metoprolol.
Anticoagulation will be on hold
Cardiology will need to be consulted given rapid atrial fibrillation.
--- NOTE | 2023-06-17 12:00 | PTCARENOTE ---
Repeated stroke scale after MRI resulted with hemorrhagic conversion. NIHSS continues to improve, currently at an 8. Sensation and peripheral vision has improved. Pt's only complaint is back pain. She denies any headache or nausea. After
transferring pt back from MRI, pt was found to be in a rapid afib with rates up to 150. 12 lead obtained. Back pain 10/10, IV Ofirmev was given with some relief. HR remains high. 5mg IV lopressor given. Rate better controlled. Converted to NSR at
1445.
[2023-06-17] MEDS: LOPRESSOR 5 MG IV (12:06)
--- NOTE | 2023-06-17 13:04 | CON.CAR ---
Addendum entered and electronically signed by Valente Carson MD 06/17/23 14:35:
I saw and examined the patient.
The RELIEF PILOT's note was reviewed and I agree with the note.
Comment: 82 y/o female with hx CAD s/p CABG, AFIB on Eliquis and sotalol as OP, hypothyroidism, hypertension, and hx endometrial cancer who recently had a lumbar laminectomy 06/13/23 at [place]. Eliquis was held for this. She came in for evaluation of
left-sided weakness. She was treated with TNK for stroke. Today, she had an MRI, which revealed hemorrhagic conversion (mild per neuro). We are consulted since she went into AFIB with RVR today. I suspect that the atrial fibrillation with rapid
ventricular responses secondary to her stroke and now hemorrhagic conversion. Additionally, I believe that this will slowly become better controlled over time and that we can tolerate the higher heart rates for the next approximately 24 hours. She
does appear to go in and out of sinus rhythm on telemetry.
- cont sotalol and metoprolol
- holding Eliquis for now given hemorrhagic conversion
Original Note:
Consultation
Consultation Request
Date/Time Consultation Requested: 06/17/23 1224
Date/Time Consultation Performed: 06/17/23 1300
Requesting Provider: Dr. Weber
Performing Provider: Angélica CHAND for Dr. Carson
Reason for Consultation: AFIB with RVR
Medical History
-
Chief Complaint: left-sided weakness
History of Present Illness:
82 y/o female with hx CAD s/p CABG, AFIB on Eliquis and sotalol as OP, hypothyroidism, hypertension, and hx endometrial cancer who recently had a lumbar laminectomy 06/13/23 at [place]. Eliquis was held for this. She came in for evaluation of
left-sided weakness. She was treated with TNK for stroke. Today, she had an MRI, which revealed hemorrhagic conversion (mild per neuro). We are consulted since she went into AFIB with RVR today. She was treated with IV metoprolol. She is not
symptomatic. Her finance professional is Dr. Valente Tee and we will request records.
Past Medical History
Past Medical History: Arrhythmias, CAD, Cancer, HTN and Hypothyroidism
Social History
Tobacco: Non-Smoker
Family History
Family History: Reviewed & Not Pertinent
Allergies / Home Medications
Allergy/AdvReac Type Severity Reaction Status Date / Time
Sulfa (Sulfonamide Allergy Unknown Verified 06/15/23 22:33
Antibiotics)
Medication Instructions Recorded Confirmed Type
apixaban 5 mg tablet (Eliquis) 5 mg PO BID Blood Clot 06/15/23 06/17/23 History
Prevention/Tx
atorvastatin 40 mg tablet 40 mg PO DAILY High Cholesterol 06/15/23 06/17/23 History
levothyroxine 25 mcg tablet 25 mcg PO DAILY Thyroid 06/15/23 06/17/23 History
sotalol 80 mg tablet 80 mg PO BID Blood Pressure 06/15/23 06/17/23 History
therapeutic multivitamin 1 tab PO DAILY Supplement 06/15/23 06/17/23 History
calcium carbonate 500 mg-vitamin 1 tab PO DAILY Supplement 06/17/23 06/17/23 History
D3 10 mcg (400 unit) tablet
(Calcium 500 + D)
methylcellulose (laxative) 500 mg 500 mg PO DAILY Gastrointestinal 06/17/23 06/17/23 History
tablet (Citrucel) Issue
omega [id number]-fish oil 1,000 mg 2 cap PO DAILY Supplement 06/17/23 06/17/23 History
(120 mg-180 mg) capsule (Fish Oil)
Review of Systems
-
History Source: Patient and Other (and chart)
All other systems: Negative unless noted
Neurological: Other (left-sided weakness)
Physical Exam
Vital Signs
Temp Pulse Resp BP Pulse Ox
99.3 F 120 14 149/95 93
06/17/23 11:04 06/17/23 12:06 06/17/23 12:00 06/17/23 12:06 06/17/23 08:30
Lab Results
06/17/23 04:07
06/17/23 04:07
Physical Exam
General: Well Developed, Well Nourished and No Apparent Distress
HEENT: Normocephalic
Respiratory: Clear and Non Labored Respirations
Cardiac: Regular Rhythm
Musculoskeletal: No Edema
Skin: Warm and Dry
Neuro: AO x 3 and Other (patient reports continued left sided weakness- able to squeeze my hands and wiggle toes on both sides)
Psych: Calm
Impression / Plan
-
CVA: acute
-in setting of held Eliquis for procedure
-this diagnosis is threat to life/bodily function
-MRI 06/17/23: LARGE ACUTE TRANSCORTICAL HEMORRHAGIC INFARCT in the LATERAL RIGHT PARIETAL LOBE and right insular cortex containing severe cytotoxic edema and central intraparenchymal hemorrhage. 2. SMALL ACUTE HEMORRHAGIC INFARCT in the MEDIAL
RIGHT FRONTAL LOBE and body of the CORPUS CALLOSUM.
-management per neurology
AFIB, paroxysmal:
-on sotalol and Eliquis as OP- sotalol continued, Eliquis held for above
-also on PO metoprolol
-patient in and out of fast afib and SB in setting of acute illness. Now s/p IV metoprolol. On metoprolol PO and sotalol PO - Follow telemetry.
CAD s/p CABG:
-stable without CP
HTN:
-on medical therapy; monitor closely
Data Reviewed
-
EKG: Tracing Personally Visualized and interpreted (AFIB with RVR ST with T abnormality)
MRI: Report Reviewed by me (brain 06/17/23: LARGE ACUTE TRANSCORTICAL HEMORRHAGIC INFARCT in the LATERAL RIGHT PARIETAL LOBE and right insular cortex containing severe cytotoxic edema and central intraparenchymal hemorrhage. 2. SMALL ACUTE
HEMORRHAGIC INFARCT in the MEDIAL RIGHT FRONTAL LOBE and body of the CORPUS CALLOSUM.)
Labs: Labs Reviewed by me
--- NOTE | 2023-06-17 17:26 | CM ---
Patient with Dx Acute Right Sided CVA with Dense Left Hemiparesis. Room air. PT & OT recommend acute rehab.
Case discussed with Dr Lala; he does not think patient is likely to have recovery of her mobility however he is willing to have physiatry evaluate the patient for acute rehab.
Phone call to [facility] [place]; left message requesting review/response to referral.
Plan follow up after Physiatry Eval.
--- NOTE | 2023-06-17 18:24 | PTCARENOTE ---
Neurological assessment slowly improving. NIHSS: 7. Pt states back pain is under control, does not complain of any headaches. K pad ordered but unable to obtain. NSR with a rate in the 60's, knee high SCDs in place. Appetite poor, ate 20% of dinner.
Call ibrahim within reach. Family at bedside.
--- NOTE | 2023-06-17 18:29 | W.PN.HOSP.TC ---
Today's Communication/Plan
-
PM&R consult
Assessment / Plan
Assessment / Plan
A/P:� Patient is an 82y F with PMH significant for ASCVD, A-Fib and hypertension who presents to ED for evaluation of L sided weakness.
Acute Right Sided CVA with Dense Left Hemiparesis
�- Admit to ICU for further evaluation and treatment.
�- CT and CTA done in the ED are essentially unremarkable.
�- TNKase administered in the ED.
�- Monitor closely in the ICU.
�- Follow serial neuro exams.
�- Neuro evaluation, Bias Cutter evaluation, etc.
�- Follow for any new / worsening symptoms.
�- PT / OT / Speech and PM&R evaluations.
�- MRI 24 hours post-TNKase: 1. � LARGE ACUTE TRANSCORTICAL HEMORRHAGIC INFARCT in the LATERAL RIGHT PARIETAL LOBE and right insular cortex containing severe cytotoxic edema and central intraparenchymal hemorrhage.
2. � SMALL ACUTE HEMORRHAGIC INFARCT in the MEDIAL RIGHT FRONTAL LOBE and body of the CORPUS CALLOSUM.
3. � Mild to moderate diffuse cerebral and cerebellar volume loss.
4. � Mild white matter leukoaraiosis in the frontal and parietal lobes.
5. � Mild multilevel central canal stenosis and spinal cord compression in the upper cervical spine secondary to disc-osteophyte complexes.
�- Check fasting lipids, Hgb A1C, Echo.
�- With history of A-Fib and recent interruption of Eliquis - ? embolic CVA.
As per Speech eval, will change diet to Pureed with clear liquids
Paroxysmal Atrial Fibrillation
�- Monitor on telemetry.
�- Continue current metoprolol and sotalol dosing.
�- Continue to hold Eliquis (last dose was 06/07).
�- Check Echo as noted above.
ASCVD
�- Prior history of CAD s/p remote CABG.
�- No recent symptoms of chest pain, etc.
�- Continue statin therapy.� Update lipid panel and adjust dosing if needed.
Lumbar DDD
s/p Lumbar Laminectomy
�- s/p surgery done at [facility] on 06/13/23.
�- Monitor for any bleeding or other changes at surgical site.
�- Follow neurologic exam closely for any evidence of bilateral LE symptoms, etc.
Hypothyroidism
�- Continue current T4 replacement.
DVT Prophylaxis:� SCDs
Code Status:� Full
son in law, Tonio in room. Pt gave me permission tofully update. He is aware of MRI results
will consult Physiatry as per CM request
Anticipated Discharge: > 48 hours
Subjective/Interval History
-
Date of Service: June 17, 2023
Left sided hemiparesis
Objective Data
-
Vital Signs:
Vital Signs
Temp Pulse Resp BP Pulse Ox
98.3 F 55 17 116/56 94
06/17/23 15:15 06/17/23 18:00 06/17/23 18:00 06/17/23 18:00 06/17/23 18:00
I&O
06/16/23 06/17/23 06/18/23
06:59 06:59 06:59
Intake Total 420 / 420 340 / 340
Output Total 1350 / 1350
Balance -930 / -930 340 / 340
Review of Systems
-
History Source: Family (son in law at bedside) and Coordinated Provider
Constitutional: Reports Fever
Respiratory: Reports No Symptoms; Denies Trouble Breathing
Cardiac: Reports No Symptoms; Denies Chest Pain
Neuro: Reports Other (left hemiparesis)
Physical Exam
-
General: Well Developed, Well Nourished and No Apparent Distress
HEENT: Normocephalic, Atraumatic and Moist Mucous Membranes
Respiratory: Clear to Auscultation; Negative Wheezes, Rales or Rhonchi
Cardiac: Regular Rhythm and S1/S2
GI: Soft, Nontender and Nondistended
Musculoskeletal: No Clubbing, No Cyanosis and No Edema
Neuro: Awake, Alert (answering questions) and Other (answering questions); Negative No Motor Deficits (left sided weakness, not moving left arm)
--- NOTE | 2023-06-17 20:52 | PTCARENOTE ---
Pt received at 19:00, family present at bedside. Hand-off NIH = 7. Mild L facial droop, LLE with minimal movement against gravity, LUE weak and with a drift, partial left visual cut. Ox3, pleasant and cooperative. SR, HR 60s, pulses palpable, BP
stable, 114/60. RA, breath sounds diminished. Bowel sounds active, poor appetite. Purewick in place, draining yellow/yesica urine. Sacral foam and back dressing intact. Pt c/o 5/10 pain to mid/lower back pain, PRN tylenol given. Safe environment
maintained, call ibrahim within reach, pt repositioned. Plan of care ongoing.
[2023-06-18] VITALS (25 sets, daily range): BP systolic 99–169; BP diastolic 37–81; PULSE 54; O2SAT 97; BMI 29.4
[2023-06-18] MEDS: DILAUDID 0.25 MG IV (01:42)
--- NOTE | 2023-06-18 01:48 | PTCARENOTE ---
Pt c/o mid to lower back pain, unable to rate. However pt is moaning and frequently attempting to adjust positions. x1 IVP dilaudid ordered and given. Pt assisted with repositioning, safe environment maintained.
[2023-06-18 04:47] LABS: Hematocrit 37.7 % (37.0-47.0); Hemoglobin 12.7 g/dL (12.0-16.0); Mean Corp Hgb Conc. 33.7 g/dL (33.0-37.0); Mean Corpuscular Hgb 31.5 pg (27.0-31.0); Mean Corpuscular Volume 93.5 fL (81.0-99.0); Platelet Count 231 10^3/uL (130-400); Red Blood Cell Count 4.03 10^6/uL (4.20-5.40); White Blood Cell Count 10.2 10^3/uL (4.8-10.8)
[2023-06-18 05:01] LABS: Blood Urea Nitrogen 28 mg/dl (7-17); Calcium 8.9 mg/dl (8.4-10.2); Carbon Dioxide 29 mmol/L (22-30); Chloride 105 mmol/L (98-107); Estimated Creatinine Clearance 45 ml/min; Glucose 100 mg/dl (70-99); Magnesium 2.3 mg/dl (1.6-2.3); Potassium 4.5 mmol/L (3.5-5.1); Sodium 140 mmol/L (135-145); eGFR > 60.00
[2023-06-18] MEDS: ZOFRAN 4 MG IV (07:45)
--- NOTE | 2023-06-18 08:31 | W.PN.CD ---
Today's Communication / Plan
-
Continue sotalol
Restart Eliquis when OK from Neuro perspective
Impression / Plan
-
82 y/o female with hx CAD s/p CABG, AFIB on Eliquis and sotalol as OP, hypothyroidism, hypertension, and hx endometrial cancer who recently had a lumbar laminectomy 06/13/23 at [place]. Eliquis was held for this. She came in for evaluation of
left-sided weakness. She was treated with TNK for stroke. Today, she had an MRI, which revealed hemorrhagic conversion (mild per neuro). We are consulted since she went into AFIB with RVR today.�She is now back in SR.
CVA: acute
-in setting of held Eliquis for procedure
-this diagnosis is threat to life/bodily function
-MRI 06/17/23: LARGE ACUTE TRANSCORTICAL HEMORRHAGIC INFARCT in the LATERAL RIGHT PARIETAL LOBE and right insular cortex containing severe cytotoxic edema and central intraparenchymal hemorrhage. 2. SMALL ACUTE HEMORRHAGIC INFARCT in the MEDIAL
RIGHT FRONTAL LOBE and body of the CORPUS CALLOSUM.
-management per neurology
AFIB, paroxysmal: now back in SR
-on sotalol and Eliquis as OP- sotalol continued, Eliquis held for above
-continue sotalol she is back in SR
- stop metoprolol
CAD s/p CABG:
-stable without CP
HTN:
-on medical therapy; monitor closely
Physical Exam
Vital Signs/Labs
Vital Signs
Temp Pulse Resp BP Pulse Ox
98.0 F 50 16 128/81 96
06/18/23 07:47 06/18/23 08:00 06/18/23 08:00 06/18/23 08:00 06/18/23 08:28
06/17/23 06/18/23 06/19/23
06:59 06:59 06:59
Actual Weight 167 lb 8.821 oz 165 lb 12.602 oz
06/18/23 04:38
06/18/23 04:38
PT 13.2 Sec (11.4-14.6) 06/16/23 05:38
INR 1.02 06/16/23 05:38
APTT 30.1 Sec (23.4-35.0) 06/16/23 05:38
Magnesium 2.3 mg/dl (1.6-2.3) 06/18/23 04:38
Triglycerides 182 mg/dl (10-149) H 06/16/23 05:38
LDL Cholesterol, Calc 76 mg/dl 06/16/23 05:38
VLDL Cholesterol, Calc 36 mg/dl (0-30) H 06/16/23 05:38
HDL Cholesterol 61 mg/dl 06/16/23 05:38
Physical Exam
Constitutional: No acute distress
EENT: Anicteric
Cardiovascular: Rhythm & rate is regular and Pedal edema is absent
Respiratory: Respiratory effort normal and Lungs clear to auscul.
GI: Soft
Neuro/Psych: AO x 3
Data Reviewed
-
Date of Service: June 18, 2023
EKG: Tracing Personally Visualized and interpreted
Labs: Labs Reviewed by me
--- NOTE | 2023-06-18 08:35 | CON.MD ---
Consultation - Medical
-
Referring Provider: Dr. Osvaldo Lala
Chief Complaint: Stroke
History of Present Illness: 82-year-old right-handed female with PMH (as below) presented [facility]23 with left-sided weakness with negative CT head s/p TNKase for presumed embolic CVA with recent interruption of Eliquis for
L3-L5 lumbar laminectomy on 06/13/2023 surgical procedure. Patient developed vomiting and significant hypertension on [address] head with no hemorrhage noted. MRI of the brain on 06/17/2023 noting large acute transcortical hemorrhagic infarct in
the lateral right parietal lobe and right insular cortex containing severe cytotoxic edema and central intraparenchymal hemorrhage. Small acute hemorrhagic infarct in the medial right frontal lobe and body of the corpus callosum.. She also went
into A-fib with RVR and cardiology was consulted with continuing of sotalol and metoprolol, Eliquis being held for hemorrhagic conversion with neurology plan to stop aspirin on 06/24 and restarting apixaban.
Past Medical History: ASCVD, hypertension, hypothyroidism, paroxysmal atrial fibrillation, endometrial cancer, lumbar degenerative disc disease
Procedure History: CABG x 3, cataracts, [facility], lumbar laminectomy 06/13/2023
Family History: Father: Prostate Cancer � � Mother: Multiple Myeloma
Social History:
Functional Level Premorbidly: Independent with all activities
Functional Level Currently:�� Dependent slide transfer from bed to stretcher, dependent lower extremity self-care. Noted with oropharyngeal dysphagia and started on a pur�e with thin liquid diet per speech.
Tobacco: Denies
Alcohol: Denies
Drug use: Denies
Lives with: Alone
24-hour assistance available: No
Number of floors: 2
# steps to enter:
# steps to second floor:
Potential First floor set up:
Driving: Yes
Occupation: Retired
�
Allergies:
Allergy/AdvReac Type Severity Reaction Status Date / Time
Sulfa (Sulfonamide Allergy Unknown Verified 06/15/23 22:33
Antibiotics)
Review of Systems:
Constitutional: (x) abNormal _fatigue
Eye: (x) Normal _
Ear/Nose/Throat: (x) abNormal _trouble swallowing
Respiratory: (x) Normal _
Cardiovascular: (x) Normal _
Gastrointestinal: (x) Normal _
Genitourinary: (x) Normal _
Musculoskeletal: (x) abNormal _no current back pain
Integumentary: (x) Normal _
Neurologic: (x) abNormal _stroke with left-sided weakness and trouble swallowing
Psychiatric: (x) Normal _
Endocrine: (x) Normal _
Hematologic/Lymphatic: (x) Normal _
Allergic/Immunologic: (x) Normal _
Medications:
Active Current Visit Medication List
Category Date Time Status
Acetaminophen [Tylenol] Med 06/16/23 04:23 Active
650 mg PO Q4HPRN PRN
Aspirin Low Dose EC [Aspir Low (Enteric Coated)] Med 06/17/23 08:00 Active
81 mg PO DAILY
Atorvastatin [Lipitor] Med 06/16/23 08:00 Active
40 mg PO DAILY
Flush (0.9% Sodium Chloride) [Flush (Nss)] Med 06/16/23 05:00 Active
See Dose Instructions IV PER PROTOCOL
HydrALAZINE [Apresoline] Med 06/16/23 04:23 Active
5 mg IV Q4HPRN PRN
Levothyroxine [Synthroid] Med 06/16/23 08:00 Active
25 mcg PO DAILY
Metoprolol [Lopressor] Med 06/17/23 11:56 Active
5 mg IV Q4HPRN PRN
Ondansetron Injectable [Zofran] Med 06/17/23 04:28 Active
4 mg IV Q6HPRN PRN
Sotalol [Betapace] Med 06/16/23 08:00 Active
80 mg PO BID
Vitals:
Temp Pulse Resp BP Pulse Ox
98.0 F 50 16 128/81 96
06/18/23 07:47 06/18/23 08:00 06/18/23 08:00 06/18/23 08:00 06/18/23 08:28
Height 5 ft 3 in
Actual Weight 75.2 kg
Body Mass Index (BMI) 29.4
Physical Exam:
General Appearance/Observation: Well-developed, well-nourished female in no apparent distress.
Pain/Comfort Assessment: Denies
Mood/Affect: Appropriate
Integumentary/Operative Site: Aquacel clean dry and intact over lumbar incision
�� Pressure Ulcer Evaluation: absent over heels.
Eyes: Conjunctiva/Lids: normal ��� Pupils: pupils equal round and reactive to light and Accommodation
Ears/Nose/Throat: oral mucosa moist,� throat clear.������������ Lips/Teeth/Gums: normal
Cardiovascular: Heart: regular, no murmur
Pulses: dorsalis pedis 2+ bilaterally
Respiratory: Respiratory Effort/Chest Expansion: normal ������ Auscultation: Clear to auscultation bilaterally
Gastrointestinal: abdomen not tender, no distension, normal abdominal bowel sounds
Genitourinary: No Silvestre
Extremities: Edema: None Cyanosis: None Trophic changes: None
Neurology Exam:
Orientation: Alert, Oriented to self, Time, Place
Memory: Intact for recent medical concerns
Repetition: Intact
Comprehension: Intact
Two step command: Intact
Naming: Intact
-Able to tell the time on the analog clock across the room
Cranial Nerves:
�� CNII: Pupillary light reflex: Intact��� Visual Field: Intact
�� CN III, IV, : Extraocular muscles: Intact
�� CN V: Facial Sensation at Forehead: Intact, Maxilla: Intact, Mandible: Intact
�� CN VII: Facial movement: Mild left facial weakness
�� CN VIII: Hearing: Normal
�� CN IX/X: Speech & swallow: dysphagia, Position of Uvula: Midline
�� CN XI: Shoulder shrug: Decreased on the left
�� CN XII: Tongue protrusion: Midline
Sensory:
�� Light touch: Intact in bilateral upper and lower extremities, no extinction to double simultaneous stimulation
Reflexes:
�� Biceps: 2+ bilaterally
�� Brachioradialis: 2+ bilaterally
�� Triceps: 2+ bilaterally
�� Patellar: 2+ bilaterally
�� Achilles: 2+ bilaterally
�� Babinski: Down going bilaterally
�� Clonus: None
�� Arie: Negative bilaterally
Cerebellar: Dysmetria/Ataxia: None on right, mild difficulty with [id number] on the left
Musculoskeletal:Motor: (Manual muscle scale 0-5)
Muscle SA EF WE EE FF FA HF KE DF EHL PF
Right� 4 5 5 5 5 5 4 5 5 5 5
Left 3 4 3 3 3+ 3 2 2+ 4 4 4
Tone: Normal in all extremities except for appears to be increased in the left hip and knee versus trouble relaxing/following command to relax
Range of Motion: Passively within normal limits in all extremities
Lab Results
Laboratory Data
06/18/23 04:38
06/18/23 04:38
PT 13.2 Sec (11.4-14.6) 06/16/23 05:38
INR 1.02 06/16/23 05:38
APTT 30.1 Sec (23.4-35.0) 06/16/23 05:38
Total Bilirubin 0.6 mg/dl (0.2-1.3) 06/15/23 22:57
AST 39 U/L (14-36) H 06/15/23 22:57
ALT 14 U/L (0-35) 06/15/23 22:57
Alkaline Phosphatase 36 U/L (38-126) L 06/15/23 22:57
Total Protein 6.3 g/dl (6.3-8.2) 06/15/23 22:57
Albumin 3.5 g/dl (3.5-5.0) 06/15/23 22:57
�
Diagnostic Results: as per HPI
Assessment
82 y/o R handed F PMH (ASCVD, hypertension, hypothyroidism, paroxysmal atrial fibrillation, endometrial cancer, lumbar degenerative disc disease) with 06/15/2023 with left-sided weakness from presumed embolic infarct being off of anticoagulation s/p
L3-L5 laminectomy 06/13/2023 s/p TNKase complicated by large acute transcortical hemorrhagic infarct in the lateral right parietal lobe and right insular cortex containing severe cytotoxic edema and central intraparenchymal hemorrhage. Small acute
hemorrhagic infarct in the medial right frontal lobe and body of the corpus callosum, A-fib with RVR with ADL and ambulatory dysfunction.
Plan
PM&R PT/OT to increase independence with ADLs, improve balance, coordination, endurance, strength, mobility, community reintegration, decreased burden of care on others and family education.
CVA presumed embolic CVA status post TNKase with hemorrhagic conversion: Secondary prophylaxis with aspirin, statin, and blood pressure control (SBP less than 140 and diastolic less than 90 to participate with therapy for hemorrhagic stroke).
Continue to monitor neurologic status.
-Plan to switch from aspirin to apixaban on 06/25/2023 per neurology.
Left nondominant hemiparesis: High risk for falls and sliding out of chair/bed. Safety reinforced.
- Avoid using affected arm to help lift or pull patient as this will cause trauma to the shoulder.
Left inattention: makes patient at increased risk for falls.� Will need therapy to work on scanning of environment for safe navigation.
Dysphagia: speech, oral care protocol, aspiration precautions.� Advance pur�e with thin liquid diet as tolerated.
L3-L5 lumbar laminectomy at [place]: Monitor incision, no brace per patient with only restrictions Limited lifting to a gallon of milk.
HTN: continue medications, monitor closely
Coronary artery disease with history of CABG: Aspirin, statin, beta-bin
Atrial fibrillation with RVR:�Holding apixaban anticoagulation with hemorrhagic stroke and rate control with metoprolol and sotalol.������������������������������������������
Hypothyroidism: levothyroxine
FEN: Elevated BUN. Encourage hydration, may need IV fluids depending on oral intake.
Psych: Psychology consult.� Monitor mood, medications as needed.
Skin: monitor for pressure sores/rashes/lesions.
Pain: acetaminophen as needed.
Bowel: Colace and Senna, PRN bisacodyl.
Bladder: Time void, PVRs, PRN straight cath.
DVT Prophylaxis: Mechanical, okay to start chemoprophylaxis as per Dr. Rodriguez discussion.
Pulmonary: Incentive spirometry
Safety: Continue to reinforce assistance with all transfers.
Code Status:� Full code
Dispo (date/plan/equipment needs): Home with family care.
Functional and Medical Goals: Modified Independent with ADL�s, ambulation, transfers
Discharge Destination: Acute inpatient rehabilitation
A total of 60 minutes were spent with the patient preparing for the evaluation, obtaining history, performing examination and evaluation, counseling, data review, case management, care coordination, manager order, and EMR documentation.
Summary of recommendations:
- Discharge Destination: Acute inpatient rehabilitation
CVA presumed embolic CVA status post TNKase with hemorrhagic conversion: Secondary prophylaxis with aspirin, statin, and blood pressure control (SBP less than 140 and diastolic less than 90 to participate with therapy for hemorrhagic stroke).
Continue to monitor neurologic status.
-Plan to switch from aspirin to apixaban on 06/25/2023 per neurology.
Left nondominant hemiparesis: PT/OT
Left inattention: increased risk for falls.�
Dysphagia: speech, oral care protocol, aspiration precautions.� Advance pur�e with thin liquid diet as tolerated.
L3-L5 lumbar laminectomy at [place]: Monitor incision, no brace per patient with only restrictions Limited lifting to a gallon of milk.
FEN: Elevated BUN. Encourage hydration, may need IV fluids depending on oral intake.
DVT Prophylaxis: Mechanical, okay to start chemoprophylaxis as per Dr. Rodriguez discussion.
Thank you for allowing me to care for your patient. Please contact me with any questions or concerns.
--- NOTE | 2023-06-18 08:43 | W.PN.INTV ---
Today's Communication / Plan
Recommendations
Continue post CVA care
Continue cardiac medications
Anticoagulation remains on hold
Physical therapy/Occupational Therapy
Eventually physiatry consultation
Hopefully can be transferred out of the ICU today. Will wait for neurology input.
Assessment
-
Patient is a 82-year-old female with previous history of CAD, hypertension, PAF on Eliquis presenting to ED for complaints of left-sided weakness and lethargy post recent lumbar laminectomy on 06/13/2023 at [facility] (Eliquis on hold for procedure).
CT imaging in the ED negative; NIHSS was 17. TNK was administered. She is admitted to ICU post TNK for closer monitoring.
Acute CVA s/p TNK 06/16/23
Hemorrhagic conversion on MRI 06/17/2023
Acute onset L sided weakness, slurred speech, R gaze preference
Recent procedure, L3-L5 Laminectomy @[facility] 06/13/23, Eliquis held
Mild leukocytosis
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
CAD s/p CABG x 3
Lumbar laminectomy (06/13/23)
Hypertension
Hypothyroidism
Paroxysmal Atrial Fibrillation
Endometrial Cancer s/p CHANTELLE
Lumbar DDD
Cataracts
Plan
Acute CVA s/p TNK
MRI showed hemorrhagic conversion 06/17/2023.
-
Left-sided weakness persist. Patient states that she feels that is improving.
Right gaze preference persists.
-
Continue physical therapy/Occupational Therapy/physiatry consultation.
-
Stable blood pressure.
Yesterday with rapid atrial fibrillation, back in sinus rhythm with sinus bradycardia.
Hemodynamically stable
Asymptomatic.
Cardiology following the patient, continue sotalol and metoprolol.
Continue panel monitor
Eliquis on hold with recent surgery and hemorrhagic conversion of CVA.
-
Neurology following the patient.
Continue with frequent neurological checks
Defer follow-up imaging to neurology.
-
Lung sounds are clear.
No significant oxygen requirement.
-
Tolerating diet. Cleared by speech pathology.
Aspiration precautions, HOB > 30 degrees
Leukocytosis resolved.
No signs/symptoms suspicious for infectious etiology at this time
Observe off antibiotics for now
Monitor accuchecks PRN/SS coverage if needed
H/o hypothyroidism, can continue on home synthroid dose
Possible transfer out of the ICU today.
Continue physical therapy/Occupational Therapy. Eventual physiatry consultation as well.
-
If transfer out of the ICU critical care team will sign off. Please call pulmonary if any respiratory issues arise.

Diagnostic Data
Chest X-Ray: low lung volumes/widened mediastinum; no comparative films
CT Scan:
Echo:
PFT's:
Reports and relevant images were personally reviewed.
-----
Subjective Dataa
Subjective Data
Date of Service:
Date of Service: June 18, 2023
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
Subjective:
Patient denies any new complaints.
Denies any nausea or vomiting overnight
Denies any headache
She states that she is working on her left-sided weakness.
Denies shortness of breath
Review of Systems
General: Fever (n)
Cardiopulmonary: Dyspnea (none), Dyspnea on Exertion (n) and Cough (n)
GI: Abdominal Pain (n), Nausea (n) and Vomiting (n)
Neuro: Headache (n)
Objective Data
Data Reviewed
Vital Signs / I&O / Oxygen:
Vital Signs
Temp Pulse Resp BP Pulse Ox
98.0 F 50 16 128/81 96
06/18/23 07:47 06/18/23 08:00 06/18/23 08:00 06/18/23 08:00 06/18/23 08:28
Intake and Output
06/17/23 06/18/23 06/19/23
06:59 06:59 06:59
Intake Total 420 / 420 340 / 340
Output Total 1350 / 1350 350 / 350
Balance -930 / -930 -10 / -10
SaO2 96
Nasal Cannula flow liters per 2
minute
Physical Exam
General: Respiratory Distress
HEENT: Normocephalic
Cardiovascular: S1-S2
Respiratory: Clear and Non-Labored Respirations
GI: Soft and Non Distended
Neurology: Awake, Alert, Other (Following commands, coughing on demand. ) and Other (Left hemiparesis. Improved with strength compared to yesterday.)
Skin: Warm
Labs/Micro/Reports
Lab Data
06/18/23 04:38
06/18/23 04:38
Microbiology
06/16/23 05:38 Nose MRSA Screen - Final
No Methicillin Resistant Staphylococcus aureus isolated.
[2023-06-18] MEDS: ASPIR LOW (ENTERIC COATED) 81 MG PO (08:46)
[2023-06-18] MEDS: BETAPACE 80 MG PO ×2 (08:46→20:31)
[2023-06-18] MEDS: SYNTHROID 25 MCG PO (08:46)
[2023-06-18] MEDS: LIPITOR 40 MG PO (08:46)
--- NOTE | 2023-06-18 16:09 | PTOTSP ---
Speech Therapy: Recommend upgrade diet to IDDSI level 5 -minced and moist and thin liquids. ST to follow.
--- NOTE | 2023-06-18 17:06 | CM ---
CM following re: d/c planning
Chart reviewed
Pt assessed by PM&R and meets acute rehab criteria
Pt disposition not anticipated for greater than 48hours
CM will continue to follow patient progress and assist with d/c to [facility] when stable
PLAN; d/c to [facility] when able
--- NOTE | 2023-06-18 18:52 | W.PN.HOSP.TC ---
Today's Communication/Plan
-
await further input from neuro
Assessment / Plan
Assessment / Plan
A/P:� Patient is an 82y F with PMH significant for ASCVD, A-Fib and hypertension who presents to ED for evaluation of L sided weakness.
Acute Right Sided CVA with Dense Left Hemiparesis
�- Admit to ICU for further evaluation and treatment.
�- CT and CTA done in the ED are essentially unremarkable.
�- TNKase administered in the ED.
�- Monitor closely in the ICU.
�- Follow serial neuro exams.
�- Neuro evaluation, Refuge Manager evaluation, etc.
�- Follow for any new / worsening symptoms.
�- PT / OT / Speech and PM&R evaluations.
�- MRI 24 hours post-TNKase: 1. � LARGE ACUTE TRANSCORTICAL HEMORRHAGIC INFARCT in the LATERAL RIGHT PARIETAL LOBE and right insular cortex containing severe cytotoxic edema and central intraparenchymal hemorrhage.
2. � SMALL ACUTE HEMORRHAGIC INFARCT in the MEDIAL RIGHT FRONTAL LOBE and body of the CORPUS CALLOSUM.
3. � Mild to moderate diffuse cerebral and cerebellar volume loss.
4. � Mild white matter leukoaraiosis in the frontal and parietal lobes.
5. � Mild multilevel central canal stenosis and spinal cord compression in the upper cervical spine secondary to disc-osteophyte complexes.
�- Check fasting lipids, Hgb A1C, Echo.
�- With history of A-Fib and recent interruption of Eliquis - ? embolic CVA.
As per Speech eval, will change diet to Pureed with clear liquids
Paroxysmal Atrial Fibrillation
�- Monitor on telemetry.
�- Continue current metoprolol and sotalol dosing.
�- Continue to hold Eliquis (last dose was 06/07), timing of resumption as per Neuro
�
ASCVD
�- Prior history of CAD s/p remote CABG.
�- No recent symptoms of chest pain, etc.
Lumbar DDD
s/p Lumbar Laminectomy
�- s/p surgery done at [facility] on 06/13/23.
�- Monitor for any bleeding or other changes at surgical site.
�- Follow neurologic exam closely for any evidence of bilateral LE symptoms, etc.
Hypothyroidism
�- Continue current T4 replacement.
DVT Prophylaxis:� SCDs
Code Status:� Full
will consult Physiatry as per CM request
Anticipated Discharge: > 48 hours
Subjective/Interval History
-
Date of Service: June 18, 2023
Awake, alert. Able to move left hand/arm
Objective Data
-
Vital Signs:
Vital Signs
Temp Pulse Resp BP Pulse Ox
98.3 F 62 14 169/74 97
06/18/23 15:36 06/18/23 18:30 06/18/23 18:30 06/18/23 18:00 06/18/23 16:30
I&O
06/17/23 06/18/23 06/19/23
06:59 06:59 06:59
Intake Total 420 / 420 340 / 340
Output Total 1350 / 1350 350 / 350
Balance -930 / -930 -10 / -10
Review of Systems
-
History Source: Coordinated Provider
Constitutional: Reports Fever
Respiratory: Reports No Symptoms; Denies Trouble Breathing
Cardiac: Reports No Symptoms; Denies Chest Pain
Neuro: Reports Other (left hemiparesis better today)
Physical Exam
-
General: Well Developed, Well Nourished and No Apparent Distress
HEENT: Normocephalic, Atraumatic and Moist Mucous Membranes
Respiratory: Clear to Auscultation; Negative Wheezes, Rales or Rhonchi
Cardiac: Regular Rhythm and S1/S2
GI: Soft, Nontender and Nondistended
Musculoskeletal: No Clubbing, No Cyanosis and No Edema
Neuro: Awake and Alert (answering questions); Negative No Motor Deficits (left sided weakness, moving left arm better than yesterday)
[2023-06-18] MEDS: MIRALAX 17 GRAMS PO (20:31)
--- NOTE | 2023-06-18 21:26 | PTCARENOTE ---
Pt received at 19:00, AOx3, NIH = 6. L sided weakness--leg weaker than arm, slight L facial droop, left UE ataxia. 2L NC, breath sounds diminished. NSR to sinus jnenifer, palpable pulses. Pt c/o feeling constipated--miralax x1 ordered and given. PW in
place, yesica urine. Safe environment maintained, call ibrahim within reach, pt repositioned.
[2023-06-19] VITALS (17 sets, daily range): BP systolic 112–179; BP diastolic 52–86; PULSE 56–58; O2SAT 100; BMI 29.4
[2023-06-19] MEDS: FLEET PHOSPHATE ENEMA-ADULT 135 ML RECTAL (01:55)
--- NOTE | 2023-06-19 01:55 | PTCARENOTE ---
Miralax not effective. Fleets enema ordered and given.
[2023-06-19] MEDS: MAALOX 30 ML PO (02:37)
[2023-06-19 06:14] LABS: Hematocrit 37.7 % (37.0-47.0); Hemoglobin 12.7 g/dL (12.0-16.0); Mean Corp Hgb Conc. 33.7 g/dL (33.0-37.0); Mean Corpuscular Hgb 30.9 pg (27.0-31.0); Mean Corpuscular Volume 91.7 fL (81.0-99.0); Mean Platelet Volume 10.1 fL (7.4-10.4); Platelet Count 233 10^3/uL (130-400); Red Blood Cell Count 4.11 10^6/uL (4.20-5.40); White Blood Cell Count 12.6 10^3/uL (4.8-10.8)
[2023-06-19 06:46] LABS: Blood Urea Nitrogen 27 mg/dl (7-17); Calcium 9.1 mg/dl (8.4-10.2); Carbon Dioxide 30 mmol/L (22-30); Chloride 104 mmol/L (98-107); Estimated Creatinine Clearance 51 ml/min; Glucose 113 mg/dl (70-99); Potassium 4.4 mmol/L (3.5-5.1); Sodium 140 mmol/L (135-145); eGFR > 60.00
--- NOTE | 2023-06-19 08:34 | W.PN.CD ---
Today's Communication / Plan
-
-Recommendations as per Neurology; tentatively, would plan on restarting Apixaban for anticoagulation and stopping aspirin on 06/24, 10 days after stroke symptoms started.
-Remains in sinus rhythm.
-Continue current dose of sotalol; metoprolol discontinued.
-No further cardiac recommendations at this time; outpatient follow-up.
Impression / Plan
-
82 y/o female with hx CAD s/p CABG, AFIB on Eliquis and sotalol as OP, hypothyroidism, hypertension, and hx endometrial cancer who recently had a lumbar laminectomy 06/13/23 at [place]. [place] was held for this. She came in for evaluation of
left-sided weakness. She was treated with TNK for stroke. Today, she had an MRI, which revealed hemorrhagic conversion (mild per neuro). We are consulted since she went into AFIB with RVR today.�She is now back in SR.
CVA: acute
-in setting of held Eliquis for procedure
-MRI 06/17/23: LARGE ACUTE TRANSCORTICAL HEMORRHAGIC INFARCT in the LATERAL RIGHT PARIETAL LOBE and right insular cortex containing severe cytotoxic edema and central intraparenchymal hemorrhage. 2. SMALL ACUTE HEMORRHAGIC INFARCT in the MEDIAL
RIGHT FRONTAL LOBE and body of the CORPUS CALLOSUM.
-Recommendations as per Neurology; tentatively, would plan on restarting Apixaban for anticoagulation and stopping aspirin on 06/24, 10 days after stroke symptoms started.
AFIB, paroxysmal: now back in SR
-Remains in sinus rhythm.
-Continue current dose of sotalol; metoprolol discontinued.
CAD s/p CABG:
-Remains stable without CP.
HTN:
-Controlled; continue with current management.
Physical Exam
Vital Signs/Labs
Vital Signs
Temp Pulse Resp BP Pulse Ox
98.4 F 60 15 133/72 96
06/19/23 07:41 06/19/23 06:03 06/19/23 06:03 06/19/23 06:03 06/19/23 02:30
06/18/23 06/19/23 06/20/23
06:59 06:59 06:59
Actual Weight 75.2 kg 75.2 kg
06/19/23 06:02
06/19/23 06:02
PT 13.2 Sec (11.4-14.6) 06/16/23 05:38
INR 1.02 06/16/23 05:38
APTT 30.1 Sec (23.4-35.0) 06/16/23 05:38
Magnesium 2.3 mg/dl (1.6-2.3) 06/18/23 04:38
Triglycerides 182 mg/dl (10-149) H 06/16/23 05:38
LDL Cholesterol, Calc 76 mg/dl 06/16/23 05:38
VLDL Cholesterol, Calc 36 mg/dl (0-30) H 06/16/23 05:38
HDL Cholesterol 61 mg/dl 06/16/23 05:38
Physical Exam
Constitutional: No acute distress and Comfortable
EENT: Anicteric
Cardiovascular: Rhythm & rate is regular, Pedal edema is absent, Systolic murmur absent and S1S2 is normal
Respiratory: Respiratory effort normal and Lungs clear to auscul.
GI: Soft
Neuro/Psych: Alert
Other: Skin (Warm, dry, intact)
Data Reviewed
-
Date of Service: June 19, 2023
EKG: Tracing Personally Visualized and interpreted (Telemetry: Sinus rhythm)
Labs: Labs Reviewed by me
[2023-06-19] MEDS: BETAPACE 80 MG PO (09:32)
[2023-06-19] MEDS: ASPIR LOW (ENTERIC COATED) 81 MG PO (09:33)
[2023-06-19] MEDS: LIPITOR 40 MG PO (09:33)
[2023-06-19] MEDS: SYNTHROID 25 MCG PO (09:33)
[2023-06-19] MEDS: MIRALAX 17 GRAMS PO (09:33)
--- NOTE | 2023-06-19 15:21 | CM ---
Patient has been approved and accepted at [place] [facility] today.
Michel
Report [phone]
--- NOTE | 2023-06-19 15:24 | PTCARENOTE ---
Pt alert. Reports feeling very tired today. Reports not sleeping over night. Slept well between breakfast and lunch today. Poor appetite. NIH 5. Strength improved in left arm and leg. Continues to have slight left facial droop and ataxia.
Small loose BM today. Purewick intact.
--- NOTE | 2023-06-19 15:49 | W.PN.HOSP.TC ---
Today's Communication/Plan
-
dc to [facility]
Assessment / Plan
Assessment / Plan
A/P:� Patient is an 82y F with PMH significant for ASCVD, A-Fib and hypertension who presents to ED for evaluation of L sided weakness.
Acute Right Sided CVA with Dense Left Hemiparesis
�- Admit to ICU for further evaluation and treatment.
�- CT and CTA done in the ED are essentially unremarkable.
�- TNKase administered in the ED.
�- Monitor closely in the ICU.
�- Follow serial neuro exams.
�- Neuro evaluation, Toe Former Stitchdowns evaluation, etc.
�- Follow for any new / worsening symptoms.
�- PT / OT / Speech and PM&R evaluations.
�- MRI 24 hours post-TNKase: 1. � LARGE ACUTE TRANSCORTICAL HEMORRHAGIC INFARCT in the LATERAL RIGHT PARIETAL LOBE and right insular cortex containing severe cytotoxic edema and central intraparenchymal hemorrhage.
2. � SMALL ACUTE HEMORRHAGIC INFARCT in the MEDIAL RIGHT FRONTAL LOBE and body of the CORPUS CALLOSUM.
3. � Mild to moderate diffuse cerebral and cerebellar volume loss.
4. � Mild white matter leukoaraiosis in the frontal and parietal lobes.
5. � Mild multilevel central canal stenosis and spinal cord compression in the upper cervical spine secondary to disc-osteophyte complexes.
�- Check fasting lipids, Hgb A1C, Echo.
�- With history of A-Fib and recent interruption of Eliquis - ? embolic CVA.
As per Speech eval, will change diet to Pureed with clear liquids
Paroxysmal Atrial Fibrillation
�- Monitor on telemetry.
�- Continue current metoprolol and sotalol dosing.
�- Continue to hold Eliquis (last dose was 06/07), timing of resumption as per Neuro
�
ASCVD
�- Prior history of CAD s/p remote CABG.
�- No recent symptoms of chest pain, etc.
Lumbar DDD
s/p Lumbar Laminectomy
�- s/p surgery done at [facility] on 06/13/23.
�- Monitor for any bleeding or other changes at surgical site.
�- Follow neurologic exam closely for any evidence of bilateral LE symptoms, etc.
Hypothyroidism
�- Continue current T4 replacement.
DVT Prophylaxis:� SCDs
Code Status:� Full
Pt has been seen by Physiatry and accepted to [facility]
Will dc now
see dictated note
More than 30 minutes spent in discharge including
Final examination of the patient
Summarizing hospital stay
Instructions for continuing care to all relevant caregivers
Preparation of discharge records, prescriptions, and referral forms
Total time spent (in minutes): 45
As per Cardio: ' -Recommendations as per Neurology; tentatively, would plan on restarting Apixaban for anticoagulation and stopping aspirin on 06/24, 10 days after stroke symptoms started.
-Remains in sinus rhythm.
-Continue current dose of sotalol; metoprolol discontinued.
-No further cardiac recommendations at this time; outpatient follow-up. '
Anticipated Discharge: Today
Subjective/Interval History
-
Date of Service: June 19, 2023
Pt will be going to [facility] now
Objective Data
-
Labs:
Laboratory Results
06/19/23
06:02
WBC 12.6 H
Hgb 12.7
Hct 37.7
Plt Count 233
Sodium 140
Potassium 4.4
Chloride 104
Carbon Dioxide 30
BUN 27 H
Creatinine 0.8
Glucose 113 H
Calcium 9.1
Vital Signs:
Vital Signs
Temp Pulse Resp BP Pulse Ox
99.1 F 52 17 119/54 90
06/19/23 11:59 06/19/23 15:30 06/19/23 15:30 06/19/23 12:00 06/19/23 11:30
I&O
06/18/23 06/19/23 06/20/23
06:59 06:59 06:59
Intake Total 340 / 340
Output Total 350 / 350 450 / 450
Balance -10 / -10 -450 / -450
Review of Systems
-
History Source: Coordinated Provider
Constitutional: Reports Fever
Respiratory: Reports No Symptoms; Denies Trouble Breathing
Cardiac: Reports No Symptoms; Denies Chest Pain
Neuro: Reports Other (left hemiparesis better today)
Physical Exam
-
General: Well Developed, Well Nourished and No Apparent Distress
HEENT: Normocephalic, Atraumatic and Moist Mucous Membranes
Respiratory: Clear to Auscultation; Negative Wheezes, Rales or Rhonchi
Cardiac: Regular Rhythm and S1/S2
GI: Soft, Nontender and Nondistended
Musculoskeletal: No Clubbing, No Cyanosis and No Edema
Neuro: Awake and Alert (answering questions); Negative No Motor Deficits (left sided weakness, moving left arm better than yesterday)
--- NOTE | 2023-06-19 18:05 | PTCARENOTE ---
Pt sleeping on and off through out day. Reported not sleeping over night. When pt woke up she was a little strange. Speech slow at times and repeating things at times. Stated, 'I feel like I have to pee but I can't pee. pee. pee.' NIH done and
improved from morning. NIH 1 for slight facial droop. No longer has drift or ataxia on left side. Neuro and Hospitalist notified and okayed for discharge. Pt straight cathed for 425ml.
--- NOTE | 2023-06-19 18:48 | PTCARENOTE ---
[facility] d/c'd. [facility] with family to [facility].
--- NOTE | 2023-06-19 19:28 | W.DS.TRANS ---
DC Summary - [facility]
-
Discharge Instructions:
Discharge Diagnosis/Procedures Acute CVA
Diet Chop all food
Additional Diets moist and minced
Activity With assistance
Driving Restrictions No driving
Bathing Restrictions None
Blood Work CBC, CMP in 5-7 days
Instructions:
Stand-Alone Forms:
Changes to Home Medications: Yes
Discharge Medications:
DC Medications w/original date entered in [employer]
apixaban 5 mg tablet (Eliquis) 5 mg PO BID Blood Clot Prevention/Tx 06/15/23
atorvastatin 40 mg tablet 40 mg PO DAILY High Cholesterol 06/15/23
levothyroxine 25 mcg tablet 25 mcg PO DAILY Thyroid 06/15/23
sotalol 80 mg tablet 80 mg PO BID Blood Pressure 06/15/23
therapeutic multivitamin 1 tab PO DAILY Supplement 06/15/23
calcium carbonate 500 mg-vitamin D3 10 mcg (400 unit) tablet (Calcium 500 + D) 1 tab PO DAILY Supplement 06/17/23
methylcellulose (laxative) 500 mg tablet (Citrucel) 500 mg PO DAILY Gastrointestinal Issue 06/17/23
omega [id number]-[id number]-fish oil 1,000 mg (120 mg-180 mg) capsule (Fish Oil) 2 cap PO DAILY Supplement 06/17/23
aspirin 81 mg tablet,delayed release 81 mg PO DAILY #0 tabs 06/19/23
polyethylene glycol 3350 17 gram oral powder packet (HealthyLax) 17 g PO DAILY #0 ea 06/19/23
Home Medication Changes
Eliquis on hold, Aspirin to start
Pending Results: No
== END 2023-06-19 18:51 | DRG 61 ==
LOC: ICU 01:19
PROVIDERS: Nurse Practitioner Family; Nurse Practitioner Primary Care; ADMITTING PHYSICIAN Hospitalist; ATTENDING PHYSICIAN Internal Medicine; CONSULT PHYSICIAN Internal Medicine; CONSULT PHYSICIAN Internal Medicine Cardiovascular Disease; CONSULT PHYSICIAN Physical Medicine & Rehabilitation; CONSULT PHYSICIAN Psychiatry & Neurology Neurology; EMERGENCY PHYSICIAN Emergency Medicine; FAMILY PHYSICIAN Family Medicine; REFERRING PHYSICIAN Neurological Surgery
PROC: 3E03317 Introduction of Other Thrombolytic into Peripheral Vein, Percutaneous Approach (ICD-10-PCS; 2023-06-15)
DX: I63.411 Cerebral infarction due to embolism of right middle cerebral artery (principal); G93.6 Cerebral edema; G81.94 Hemiplegia, unspecified affecting left nondominant side; M50.021 Cervical disc disorder at C4-C5 level with myelopathy; M48.02 Spinal stenosis, cervical region; E03.9 Hypothyroidism, unspecified; E78.00 Pure hypercholesterolemia, unspecified; I10 Essential (primary) hypertension; I25.10 Atherosclerotic heart disease of native coronary artery without angina pectoris; R47.81 Slurred speech; R13.12 Dysphagia, oropharyngeal phase; I48.0 Paroxysmal atrial fibrillation; D72.829 Elevated white blood cell count, unspecified; H91.90 Unspecified hearing loss, unspecified ear; M51.36 Other intervertebral disc degeneration, lumbar region; Z79.01 Long term (current) use of anticoagulants; Z79.890 Hormone replacement therapy; Z95.1 Presence of aortocoronary bypass graft; Z85.42 Personal history of malignant neoplasm of other parts of uterus; Z88.2 Allergy status to sulfonamides; Z80.7 Family history of other malignant neoplasms of lymphoid, hematopoietic and related tissues; Z80.42 Family history of malignant neoplasm of prostate; Z91.81 History of falling
CPT/HCPCS: 70450; 70496; 70498; 70551; 71045; 80048; 80053; 80061; 83036; 83735; 84100; 85025; 85027; 85610; 85730; 87070; 92526; 92610; 93005; 96374; 97112; 97129; 97163; 97167; 97530; 97535; 99291; J3101; Q9967

== ENCOUNTER 2023-11-03 14:24 | Inpatient (IN) | payer MEDICARE, OTHER, SELFPAY ==
[2023-11-03 10:36] VITALS: BP 109/62
[2023-11-03 11:23] VITALS: BMI 30.1
[2023-11-03 11:28] VITALS: BP 116/51
[2023-11-03 11:42] LABS: % Basophils 0.2 % (0-2); % Immature Granulocytes 0.4 % (0-0.5); % Lymphocytes 12.2 % (20.5-51.1); % Neutrophils 73.2 % (42.2-75.2); Absolute Immature Granulocytes 0.1 10^3/uL (0-0.05); Absolute Lymphocytes 1.4 10^3/uL (1.2-3.4); Absolute Monocytes 1.7 10^3/uL (0.1-0.6); Absolute Neutrophils 8.6 10^3/uL (1.4-6.5); Mean Corp Hgb Conc. 34.3 g/dL (33.0-37.0); Mean Corpuscular Hgb 30.5 pg (27.0-31.0); Mean Corpuscular Volume 89.1 fL (81.0-99.0); Mean Platelet Volume 10.2 fL (7.4-10.4); Nucleated Red Blood Cells % 0 %; Platelet Count 200 10^3/uL (130-400); Red Blood Cell Count 3.93 10^6/uL (4.20-5.40); Red Cell Dist. Width 13.2 % (11.5-14.5); White Blood Cell Count 11.8 10^3/uL (4.8-10.8)
[2023-11-03 11:54] LABS: Urine Albumin 1+ (Neg - Trace); Urine Bilirubin Negative (Negative); Urine Character Clear (Clear); Urine Color Yellow; Urine Glucose Negative (Negative); Urine Ketone Negative (Negative); Urine Leukocyte 2+ (Negative); Urine Nitrite Negative (Negative); Urine Occult Blood 1+ (Negative); Urine Urobilinogen Negative (Neg - 1+)
[2023-11-03 11:57] LABS: ALT (SGPT) 15 U/L (0-35); AST (SGOT) 25 U/L (14-36); Albumin 3.5 g/dl (3.5-5.0); Alkaline Phosphatase 51 U/L (38-126); Blood Urea Nitrogen 18 mg/dl (7-17); Calcium 8.4 mg/dl (8.4-10.2); Carbon Dioxide 28 mmol/L (22-30); Chloride 105 mmol/L (98-107); Estimated Creatinine Clearance 39 ml/min; Glucose 137 mg/dl (70-99); Potassium 3.8 mmol/L (3.5-5.1); Sodium 137 mmol/L (135-145); Total Bilirubin 0.4 mg/dl (0.2-1.3); Total Protein 6.2 g/dl (6.3-8.2); eGFR 55.21
[2023-11-03 12:00] VITALS: BP 107/42
[2023-11-03 12:04] LABS: Urine Bacteria Moderate (Negative); Urine Red Blood Cell 0-2 /HPF (0-2); Urine White Cell >100 /HPF (0-5)
[2023-11-03 12:48] LABS: COVID-19 Antigen Positive (Negative)
[2023-11-03] MEDS: TYLENOL 650 MG PO (13:01)
--- NOTE | 2023-11-03 13:06 | ED.GENMED ---
History of Present Illness
General
Chief Complaint: Urinary Symptoms
Source: patient and family
Exam Limitations: none
Time Seen by Provider: 11/03/23 11:17
Nursing documentation reviewed up to this point in time: agreed with
History of Present Illness
History of Present Illness:
83 y/o F with h/o afib, htn, hld, on eliquis, UTIs
here from daughter's house where she has been staying
h/o stroke in june s/p TNK, with very good results, improving L sided weakness
no walker
has hd utis a few times this year
2 days ago started showing some signs, saying a few things that seemed a little 'off' and her urine smelled strong so daughter called the PCP who caleld in [facility]
last uti was june
pt took 1 dose but was coughing overnight an dhad a hard time sleeping so daughter wanted to be sure no pneumonia
her granddaughte rhas been sick with cold symptoms recently as well
Past History
Past History
ED Past Medical History: Arrthythmia (AFib), CAD, Cancer (Endometrial), HTN, Hypercholesterolemia and Hypothyroidism
ED Past Surgical History: Cardiac (CABG x3), Gynecological (CHANTELLE), Orthopedic (Lumbar laminectomy L3-5) and Other (cataracts)
Social History
Tobacco: Non-smoker
Alcohol: Other
Drug: None
Personal: Other
Living: with family
Employment: Retired
Family History
Family History: Other (reviewed and non-contributory)
Review of Systems
Review of Systems
Allergies reviewed?: Yes
All Other Systems: Not applicable
Phy Exam
Physical Exam
Physical Exam:
GENERAL: Alert ,occ cough, mild tachypnea
EYE: pupils equal and reactive
NECK: Supple
ENT: b/l TM s clear, pharynx erythematous but no tonsillar hypertrophy or exudates
CARDIAC: Regular rate and rhythm, no edema
LUNGS: no wheezing, mild rhonchi, no rales;, mild tachypnea
occ cough
ABDOMEN: Soft, without focal tenderness, no r/g, no cvat, normal bowel sounds
NEUROLOGICAL: Alert and oriented, no focal neuro deficits
SKIN: Warm and dry, skin intact.
MUSCULOSKELETAL: No edema, well perfused.
PSYCH: Normal and appropriate interaction.
Course
Orders/Labs/Results
Orders:
Orders
11/03/23 11:35
Chest [CR Chest - 2 Views ] Urgent
Comment:
Reason For Exam: cough
11/03/23 11:36
Complete Blood Count/With Diff Urgent
Comprehensive Metabolic Panel Urgent
Urinalysis Reflex To Culture Urgent
Date Specimen was Collected: 11/03/23
Time Specimen was Collected: 11:34
Urine Microscopic Reflex Cult Urgent
Urine Culture Urgent
KATTY Source: U
Specimen Description:
Date Specimen was Collected: 11/03/23
Time Specimen was Collected: 11:34
11/03/23 12:21
COVID-19 Antigen Urgent
Source: Nasal Swab
11/03/23 12:47
Acetaminophen [Tylenol] 650 mg PO NOW STA
11/03/23 13:10
CefTRIAXone [Rocephin] 1,000 mg IV NOW STA
11/03/23 13:49
Admit/Transfer Patient As Directed
Co-Sign Provider:
Level of Care: Inpatient admission
Assign to:: Medical/Surgical
Physician / Group: Simón
Diagnosis: COVID infection
Reason for Hospitalization: COVID treatment
Expected length of stay greater than two midnights?: Yes
ELOS- Estimated Length of Stay in days: 2
I certify the patient meets the requirements for IP care: Yes
PRN Pain Medication Management As Directed
May give lesser potent ordered pain med per pt: Yes
preference::
Protocol:: Medication orders for pain may be administered in a
manner that supports deferring to patient preference
when the pt is:
- Requesting an ordered lesser potent pain medication.
Least to most potent pain medications are defined
as: acetaminophen < NSAID < tramadol < opioids
(morphine, oxycodone, hydromorphone).
- Requesting a lesser dose of the same medication IF
ORDERED.
- Requesting a less intrusive route of administration
if both routes are prescribed by the provider (PO <
IV).
11/03/23 13:51
Code Status As Directed
Resuscitation Status: Full Code
Abnormal Lab Results
11/03/23 11/03/23
11:36 12:21
WBC 11.8 H 10^3/uL
(4.8-10.8)
RBC 3.93 L 10^6/uL
(4.20-5.40)
Hct 35.0 L %
(37.0-47.0)
Abs Immat Gran (auto) 0.1 H 10^3/uL
(0-0.05)
Absolute Neuts (auto) 8.6 H 10^3/uL
(1.4-6.5)
Absolute Monos (auto) 1.7 H 10^3/uL
(0.1-0.6)
Lymphocytes % 12.2 L %
(20.5-51.1)
Monocytes % 14.0 H %
(1.7-9.3)
BUN 18 H mg/dl
(7-17)
Glucose 137 H mg/dl
(70-99)
Total Protein 6.2 L g/dl
(6.3-8.2)
Ur Occult Blood Reflex 1+ A
(Negative)
Leukocyte Esterase Rfl 2+ A
(Negative)
Urine WBC (Reflex) >100 A /HPF
(0-5)
Urine Bacteria (Reflex) Moderate A
(Negative)
Urine Albumin (Reflex) 1+ A
(Neg - Trace)
SARS-CoV-2 Antigen Positive A
(Negative)
11/03/23 11:36
11/03/23 11:36
Vital Signs
Initial and Last Documented VS:
Initial Vital Signs
Temp Pulse Resp Pulse Ox
100.1 F 68 16 92
11/03/23 10:34 11/03/23 10:34 11/03/23 10:34 11/03/23 10:34
Last Documented Vital Signs
Temp Pulse Resp BP Pulse Ox
100.1 F 67 25 116/51 92
11/03/23 10:34 11/03/23 11:45 11/03/23 11:45 11/03/23 11:28 11/03/23 11:45
MDM/Problems Addressed
Differential Diagnosis Includes:
covid, pneumonia, uti, sepsis
MDM/Problems Addressed:
83 y/o F cva s/p TNK, doing well; on eliquis
strong urine and some mild fatigue x 2 dyas, started coughing yesterday, looked sob at home at rest; febrile, normotensive, pulse ox resting 90-92% goes as low as 89%; some rhonchi; covid + (vaccinated, 1 booster); wbc 12, UTI; rocephin given; cxr
clear indep reviewed; no signs of septic shock
no chf, no pona
will admit for oxygen and obs; iv abx
*Critical Care Note
Total Time (30-74mins, 75-104mins- exclusive of procedures): Not Applicable
ED Attending Note
-
Portions of this chart may have been created with voice recognition software.� Occasional wrong word or��sound alike� substitutions may have occurred due to the inherent limitations of voice recognition software.
Discharge Plan
Departure
Patient Disposition: Admit
Date of Disposition: 11/03/23
Time of Disposition: 13:22
Admit to: Med/Surg
Presentation/result/management discussed w/ accepting MD/DO: Hospitalist
Condition: Fair
Covid-19: Confirmed COVID-19
Discharge Problem:
COVID-19, UTI (urinary tract infection)
Interventions
Interventions:
*Risk Screen - Suicide Last Done: 11/03/23 11:23
*General Assessment Last Done: 11/03/23 11:23
*Neglect/Abuse Screening Last Done: 11/03/23 11:23
ED- Fall Risk Assessment Last Done: 11/03/23 11:23
*ED COVID-19 Vaccine History Last Done: 11/03/23 11:23
ED-Female Genitourinary Assessment Last Done: 11/03/23 11:23
[2023-11-03] MEDS: ROCEPHIN 1000 MG IV (13:27)
--- NOTE | 2023-11-03 13:55 | HPS.HSE ---
Family Physician
-
Family Physician: Stevie Valadez
Chief Complaint
-
Cough, weakness
History of Present Illness
83-year-old female developed weakness on Saturday then subsequently developed cough on Saturday. Daughter became concerned and brought her to the hospital for evaluation. She seemed off a little bit compared to her baseline mental status as well.
Daughter noted strong smelling odor to her urine and PCP prescribed Keflex yesterday. Does have a history of UTI. Patient herself denies UTI symptoms.
Granddaughter has had cold symptoms for the past few days. Went to see the sanding machine operator a few days ago but was not COVID tested.
Medical History
Past Medical History
Past Medical History: Reports Other
Additional Past Medical History:
Paroxysmal atrial fibrillation
Right hemispheric stroke, left hemiparesis, hemorrhagic conversion -treated with thrombolysis, June 2023
Essential hypertension
Hyperlipidemia
CAD
Endometrial cancer
Hypothyroidism
Myasthenia gravis
Nephrolithiasis
anxiety/depression
Lumbar and cervical spinal stenosis
Past Surgical History: Reports Other
Additional Past Surgical History:
CABG
Total abdominal hysterectomy
Lumbar laminectomy, L3-L5
Cataract surgery
Social History
Tobacco: Non-smoker
Alcohol: None
Drug: None
Living: With Family
Family History
Family History: Not pertinent
Allergies / Home Medications
Allergies reflects when Allergies were last updated in [employer].
Home Medications with original date entered in [employer]
Allergy/Medication List:
Allergies
Allergy/AdvReac Type Severity Reaction Status Date / Time
Sulfa (Sulfonamide Allergy Unknown Verified 06/15/23 22:33
Antibiotics)
Home Medications
apixaban 5 mg tablet (Eliquis) 5 mg PO BID Blood Clot Prevention/Tx 06/15/23
atorvastatin 40 mg tablet 40 mg PO HS High Cholesterol 06/15/23
levothyroxine 25 mcg tablet 25 mcg PO DAILY Thyroid 06/15/23
sotalol 80 mg tablet 80 mg PO BID Blood Pressure 06/15/23
docusate sodium 100 mg capsule 100 mg PO BID 30 days #60 caps 07/05/23
acetaminophen 500 mg tablet (Tylenol Extra Strength) 1,000 mg PO Q6HPRN PRN mild pain 11/03/23
calcium carbonate 500 mg-vitamin D3 10 mcg (400 unit) chewable tablet (Calcium 500 + D) 1 tab PO DAILY 11/03/23
cephalexin 500 mg capsule 500 mg PO BID 11/03/23
yaobkkut-fgwt-mrfs 8 mg-folic 400 mcg-K 50 mcg-lutein 300 mcg tablet (Centrum Silver Women) 1 tab PO DAILY 11/03/23
Review of Systems
-
History Source: Patient and Family
A 12 point ROS was completed and negative except as noted: Yes
Constitutional: Reports Fever and Fatigue
Respiratory: Reports Cough
Physical Exam
Vital Signs
Vital Signs
Temp Pulse Resp BP Pulse Ox
100.1 F 67 25 116/51 92
11/03/23 10:34 11/03/23 11:45 11/03/23 11:45 11/03/23 11:28 11/03/23 11:45
Physical Exam
General: Well Developed, Well Nourished, No Apparent Distress, Comfortable and Other (Hard of hearing)
HEENT: NormoCephalic, Anicteric and Moist mucous membranes
Respiratory: Clear
Cardiac: S1/S2 and Regular Rhythm
Breast: Deferred by me
GI: Soft, Non Tender and Non Distended
Genito-urinary: Deferred by me
Musculoskeletal: No Clubbing, No Cyanosis and No Edema
Skin: Warm and Dry
Neuro: Awake, Alert and Oriented
Hematologic/Lymphatic: No Lymphadenopathy
Psych: Calm
Laboratory Results
-
11/03/23 11:36
11/03/23 11:36
Laboratory Results
Total Bilirubin 0.4 mg/dl (0.2-1.3) 11/03/23 11:36
AST 25 U/L (14-36) 11/03/23 11:36
ALT 15 U/L (0-35) 11/03/23 11:36
Alkaline Phosphatase 51 U/L (38-126) 11/03/23 11:36
Impression/Plan
-
COVID-19 infection -no evidence of pneumonia. Admit to [facility]. Start molnupiravir 800 mg twice daily, 5 days total. Paxlovid interacts with her Eliquis.
Not appreciably hypoxic, hold off on steroids. Last vaccinated in 2021. Suspect her granddaughter was ill a few days prior to onset of this patient's symptoms. Spoke with family and recommend that all family members get tested for COVID.
Ambulatory dysfunction -with history of stroke. More weak now due to acute infection with COVID. Consult PT/OT.
Possible urinary tract infection -pyuria noted on urinalysis although patient asymptomatic. Continue empiric IV ceftriaxone pending culture. She started Keflex yesterday empirically by her primary care doctor.
CAD/CABG -stable. Continue home meds.
Paroxysmal atrial fibrillation -continue sotalol, Eliquis.
History of stroke
Hyperlipidemia -continue atorvastatin.
Hypothyroidism -continue levothyroxine.
Myasthenia gravis
History of endometrial cancer -treated with hysterectomy and radiation.
Spinal stenosis
Full code
Updated daughter at the bedside.
[2023-11-03 16:20] VITALS: BP 119/59
--- NOTE | 2023-11-03 16:45 | PTCARENOTE ---
pt aaox3 within the room. daughter at bedside. daughter and pt son are primary contacts. added to emergency contacts on worklist. pt is on RA, with a productive harsh cough. pt does not use any ambulatory devices and receives home PT. pt states she
had a stroke in june so she does deal with some peripheral vision issues in the left eye and that her L arm does get tired at times. BP stable at 119/59, HR 62 and pt afebrile with 98.2 oral temp. pt oriented to call light and telephone. pt inc of
stool and urine. prior to admission pt started on rocephin for a uti by her primary MD. pt receiving IV rocephin q24h here.
[2023-11-03 17:42] VITALS: BMI 28.9
[2023-11-03] MEDS: MOLNUPIRAVIR (EUA) 800 MG PO (21:01)
[2023-11-03] MEDS: COLACE 100 MG PO (21:01)
[2023-11-03] MEDS: ELIQUIS 5 MG PO (21:01)
[2023-11-03] MEDS: LIPITOR 40 MG PO (21:02)
[2023-11-03 23:36] VITALS: BP 139/75
[2023-11-04] VITALS (8 sets, daily range): BP systolic 128–179; BP diastolic 73–92; PULSE 70–84; O2SAT 93; BMI 28.9
[2023-11-04] MEDS: SYNTHROID 25 MCG PO (05:31)
[2023-11-04 08:17] LABS: % Basophils 0.2 % (0-2); % Eosinophils 0.1 % (0-6); % Immature Granulocytes 0.2 % (0-0.5); % Lymphocytes 17.3 % (20.5-51.1); % Monocytes 12.9 % (1.7-9.3); % Neutrophils 69.3 % (42.2-75.2); Absolute Lymphocytes 1.5 10^3/uL (1.2-3.4); Absolute Monocytes 1.1 10^3/uL (0.1-0.6); Hematocrit 39.8 % (37.0-47.0); Hemoglobin 13.4 g/dL (12.0-16.0); Mean Corp Hgb Conc. 33.7 g/dL (33.0-37.0); Mean Corpuscular Hgb 30.9 pg (27.0-31.0); Mean Corpuscular Volume 91.7 fL (81.0-99.0); Mean Platelet Volume 10.8 fL (7.4-10.4); Nucleated Red Blood Cells % 0 %; Platelet Count 215 10^3/uL (130-400); Red Blood Cell Count 4.34 10^6/uL (4.20-5.40); Red Cell Dist. Width 13.4 % (11.5-14.5); White Blood Cell Count 8.6 10^3/uL (4.8-10.8)
[2023-11-04] MEDS: BETAPACE 80 MG PO (08:30)
[2023-11-04] MEDS: OSCAL 500 + D 500 MG PO (08:33)
[2023-11-04] MEDS: COLACE 100 MG PO (08:33)
[2023-11-04] MEDS: ELIQUIS 5 MG PO ×2 (08:34→21:14)
[2023-11-04] MEDS: MOLNUPIRAVIR (EUA) 800 MG PO ×2 (08:38→21:13)
--- NOTE | 2023-11-04 12:08 | W.PN.HOSP.TC ---
Today's Communication/Plan
-
Monitor vital signs see plan
Continue with antibiotics
Follow urine culture
Continue with COVID therapy
PT/OT
Assessment / Plan
Assessment / Plan
General: Well Developed, Well Nourished, No Apparent Distress, Comfortable and Other (Hard of hearing)
HEENT: NormoCephalic, Anicteric and Moist mucous membranes
Respiratory: Clear
Cardiac: S1/S2 and Regular Rhythm
Breast: Deferred by me
GI: Soft, Non Tender and Non Distended
Musculoskeletal: No Edema
Neuro: Awake, Alert and Oriented
Psych: Calm
COVID-19 infection -no evidence of pneumonia. Started molnupiravir 800 mg twice daily, 5 days total. Paxlotony interacts with her Eliquis.
Not appreciably hypoxic, hold off on steroids. Last vaccinated in 2021. Suspect her granddaughter was ill a few days prior to onset of this patient's symptoms. Spoke with family and recommend that all family members get tested for COVID.
Ambulatory dysfunction -with history of stroke. More weak now due to acute infection with COVID. Consult PT/OT.
Possible urinary tract infection -pyuria noted on urinalysis Continue empiric IV ceftriaxone pending culture. She started Keflex empirically by her primary care doctor.
CAD/CABG -stable. Continue home meds.
Paroxysmal atrial fibrillation -continue sotalol, Eliquis. Sotalol dose decreased to daily per pharmacy recommendation given creatinine clearance
History of stroke
Hyperlipidemia -continue atorvastatin.
Hypothyroidism -continue levothyroxine.
Myasthenia gravis
History of endometrial cancer -treated with hysterectomy and radiation.
Spinal stenosis
Full code
Anticipated Discharge: 24 - 48 hours
Subjective/Interval History
-
Date of Service: November 04, 2023
denies pain
Objective Data
-
Labs:
Laboratory Results
11/04/23
07:51
WBC 8.6
Hgb 13.4
Hct 39.8
Plt Count 215
Vital Signs:
Vital Signs
Temp Pulse Resp BP Pulse Ox
98.0 F 147 20 132/82 94
11/04/23 07:20 11/04/23 08:30 11/04/23 07:20 11/04/23 08:30 11/04/23 07:20
I&O
11/03/23 11/04/23 11/05/23
06:59 06:59 06:59
Intake Total 1320 / 1320
Balance 1320 / 1320
[2023-11-04] MEDS: STERILE WATER FOR INJECTION 10 ML IV (15:45)
[2023-11-04] MEDS: ROCEPHIN 1000 MG IV (15:46)
--- NOTE | 2023-11-04 15:49 | CM ---
Reviewed the chart notes and spoke with the patient's daughter via telephone. Multiple attempts to reach patient via cell phone and inpatient phone. The patient is temporarily staying with her daughter. The daughter live in a two story home with
two steps to enter. The patient uses no DME. The patient has had [facility] and been to [facility] and [facility]. The confirmed pharmacy of choice is the [facility]. CM continues to be available to patient/family and is monitoring
medical plan for needs at discharge.
Plan: Discharge to home with outpatient therapy or VN in home.
--- NOTE | 2023-11-04 18:30 | PTCARENOTE ---
PCT called this RN into the room because the pt was complaining of extreme SOB. Pt was found with blue lips and an o2 sat of 89% on room air. o2 placed on pt, vital signs showed BP of 172/92 and HR 76. No changes in lung sounds, see nursing shift
assessment. MD made aware, o2 saturation increased with deep breathing and o2, PRN hydralazine and inhaler provided with much relief to the patient. Oncoming nurse made aware of situation.
[2023-11-04] MEDS: ProAIR HFA INHALER 1 PUFF INH (18:34)
[2023-11-04] MEDS: APRESOLINE 5 MG IV (18:37)
[2023-11-04] MEDS: LIPITOR 40 MG PO (21:14)
[2023-11-04] MEDS: COLACE PO (21:15)
[2023-11-04] MEDS: DECADRON 6 MG IV (21:15)
[2023-11-05] VITALS (7 sets, daily range): BP systolic 137–166; BP diastolic 73–93; BMI 28.9
[2023-11-05] MEDS: SYNTHROID 25 MCG PO (05:27)
--- NOTE | 2023-11-05 06:36 | PTCARENOTE ---
Pt's aaox3, call light answered from staff and found pt sitting over her blankets next to her bed facing the doorway. Pt stating 'I got up to use the bathroom and my legs were wrapped with blankets so I sat myself on the floor and then pressed the
call light'. Pt was gently educated again on the use of call light, VSS , no skin changes noted, bed alarm in place.
[2023-11-05 06:54] LABS: % Immature Granulocytes 0.3 % (0-0.5); % Lymphocytes 11.3 % (20.5-51.1); % Monocytes 3.4 % (1.7-9.3); Absolute Lymphocytes 0.7 10^3/uL (1.2-3.4); Absolute Monocytes 0.2 10^3/uL (0.1-0.6); Absolute Neutrophils 5.2 10^3/uL (1.4-6.5); Blood Urea Nitrogen 24 mg/dl (7-17); Calcium 8.9 mg/dl (8.4-10.2); Carbon Dioxide 27 mmol/L (22-30); Chloride 107 mmol/L (98-107); Estimated Creatinine Clearance 42 ml/min; Glucose 133 mg/dl (70-99); Hematocrit 39.8 % (37.0-47.0); Hemoglobin 13.1 g/dL (12.0-16.0); Mean Corp Hgb Conc. 32.9 g/dL (33.0-37.0); Mean Corpuscular Volume 91.3 fL (81.0-99.0); Nucleated Red Blood Cells % 0 %; Platelet Count 227 10^3/uL (130-400); Potassium 4.5 mmol/L (3.5-5.1); Red Blood Cell Count 4.36 10^6/uL (4.20-5.40); Red Cell Dist. Width 13.5 % (11.5-14.5); Sodium 140 mmol/L (135-145); White Blood Cell Count 6.1 10^3/uL (4.8-10.8); eGFR > 60.00
--- NOTE | 2023-11-05 08:04 | PN.CDI ---
CDI
- -
CDI:
Physician Documentation Request
Admit Date: 11/03/23 14:24
Dear Doctor Doe,
Patient admitted with Covid 19.
11/03 PCN: 'PCT called this RN into the room because the pt was complaining of extreme SOB. Pt was found with blue lips and an o2 sat of 89% on room air.'
11/04/23
18:03 11/04/23
18:47
Nasal Cannula flow liters per minute 4 4
11/03/23
11:45 11/03/23
13:30 11/03/23
14:15
Resp Rate 25 25 25
Clarify which of the following accurately represents the patient's respiratory status:
Acute hypoxic respiratory failure
Hypoxia
Other
Additional information for Respiratory Failure:
Recognized criteria for Respiratory Failure (Source: [facility] Hospitalist Feb 2013)
ABGs: (1 or more) Symptoms Please indicate type if known
1. p)2 <60 or RA SPO2 <91% on RA 1. Tachypnea, SOB, dyspnea Hypoxic
2. pCO2 50 and pH <7.35 2. Use of accessory muscles Hypercapnic
3. pO2 decrease of pCO2 increase by 3. Pallor or cyanosis Hypoxic and Hypercapnic
10 mmHg from baseline if known 4. Anxiety or restlessness Unable to determine
5. Unable to speak in full sentences
Supplemental O2 of > 40% (5LPM) Intubation is not required
Use of terms such as suspected, likely, concern for, or probable (associated with a specific diagnosis that is being evaluated, monitored, or treated as if it exists) are acceptable and can be coded in the inpatient setting, when documented at the
time of discharge.
Thank you,
Brina Mosqueda RN, BSN
CDI Specialist
Available via [place] text
Please use your independent medical judgment in providing your response.
[2023-11-05] MEDS: COLACE PO ×3 (09:25→20:44)
[2023-11-05] MEDS: BETAPACE 80 MG PO (09:25)
[2023-11-05] MEDS: ELIQUIS 5 MG PO ×2 (09:25→20:56)
[2023-11-05] MEDS: OSCAL 500 + D 500 MG PO (09:26)
[2023-11-05] MEDS: MOLNUPIRAVIR (EUA) 800 MG PO ×2 (09:29→21:01)
--- NOTE | 2023-11-05 11:30 | W.PN.HOSP.TC ---
Today's Communication/Plan
-
Monitor vital signs see plan
Continue with Decadron
Continue midodrine.
Wean oxygen as tolerated
Continue sotalol
Assessment / Plan
Assessment / Plan
General: Well Developed, Well Nourished, No Apparent Distress, Comfortable and Other (Hard of hearing)
HEENT: NormoCephalic, Anicteric and Moist mucous membranes
Respiratory: Clear
Cardiac: S1/S2 and Regular Rhythm
Breast: Deferred by me
GI: Soft, Non Tender and Non Distended
Musculoskeletal: No Edema
Neuro: Awake, Alert and Oriented
Psych: Calm
COVID-19 infection -no evidence of pneumonia. Started molnupiravir 800 mg twice daily, 5 days total. Michael interacts with her Eliquis.
Not appreciably hypoxic, hold off on steroids. Last vaccinated in 2021. Suspect her granddaughter was ill a few days prior to onset of this patient's symptoms. Spoke with family and recommend that all family members get tested for COVID.
Acute hypoxic respiratory insufficiency likely secondary to COVID with associated bronchitis
Albuterol as needed
Started Decadron
Was on 4 L, now on 2 L. Wean oxygen as tolerated
Ambulatory dysfunction -with history of stroke. More weak now due to acute infection with COVID. Consult PT/OT.
Possible urinary tract infection -pyuria noted on urinalysis Continue empiric IV ceftriaxone pending culture. She started Keflex empirically by her primary care doctor.
CAD/CABG -stable. Continue home meds.
Paroxysmal atrial fibrillation -continue sotalol, Eliquis. Sotalol dose decreased to daily per pharmacy recommendation given creatinine clearance. once creatinine clearance persistently improve then will increase back to 80 mg twice daily
essential HTN
hydralazine prn
on sotalol
History of stroke
Hyperlipidemia -continue atorvastatin.
Hypothyroidism -continue levothyroxine.
Myasthenia gravis
History of endometrial cancer -treated with hysterectomy and radiation.
Spinal stenosis
Full code
Anticipated Discharge: Within 24 hours
Subjective/Interval History
-
Date of Service: November 05, 2023
denies pain
Objective Data
-
Labs:
Laboratory Results
11/05/23
05:03
WBC 6.1
Hgb 13.1
Hct 39.8
Plt Count 227
Sodium 140
Potassium 4.5
Chloride 107
Carbon Dioxide 27
BUN 24 H
Creatinine 0.9
Glucose 133 H
Calcium 8.9
Vital Signs:
Vital Signs
Temp Pulse Resp BP Pulse Ox
98.0 F 76 16 143/82 95
11/05/23 07:30 11/05/23 09:25 11/05/23 07:30 11/05/23 09:25 11/05/23 07:30
I&O
11/04/23 11/05/23 11/06/23
06:59 06:59 06:59
Intake Total 1320 / 1320 1570 / 1570
Balance 1320 / 1320 1570 / 1570
[2023-11-05] MEDS: OMNICEF 300 MG PO ×2 (12:18→20:56)
--- NOTE | 2023-11-05 14:03 | CM ---
Reviewed the chart notes and spoke with the patient's daughter via telephone. IMM reviewed. PT recommendation is outpatient therapy. Patient 's daughter in agreement with plan. CM continues to be available to patient/family and is monitoring
medical plan for needs at discharge.
Plan: Discharge to home and continue with outpatient therapy.
--- NOTE | 2023-11-05 15:30 | PTCARENOTE ---
Patient 98% on 2L O2 this AM, states breathing and cough have improved from yesterday, in agreement to trial off O2. Patient's POX for 1500 vital signs 94% on RA, patient states no concerns at this time.
[2023-11-05] MEDS: DECADRON 6 MG IV (20:54)
[2023-11-05] MEDS: LIPITOR 40 MG PO (20:56)
[2023-11-06 03:00] VITALS: BP 130/66
[2023-11-06] MEDS: SYNTHROID 25 MCG PO (06:14)
[2023-11-06 06:50] LABS: % Basophils 0.1 % (0-2); % Immature Granulocytes 0.4 % (0-0.5); % Lymphocytes 11.9 % (20.5-51.1); % Monocytes 3.6 % (1.7-9.3); Absolute Lymphocytes 0.9 10^3/uL (1.2-3.4); Absolute Monocytes 0.3 10^3/uL (0.1-0.6); Absolute Neutrophils 6.5 10^3/uL (1.4-6.5); Hematocrit 36.9 % (37.0-47.0); Hemoglobin 12.2 g/dL (12.0-16.0); Mean Corp Hgb Conc. 33.1 g/dL (33.0-37.0); Mean Corpuscular Volume 90.9 fL (81.0-99.0); Mean Platelet Volume 11.1 fL (7.4-10.4); Nucleated Red Blood Cells % 0 %; Platelet Count 257 10^3/uL (130-400); Red Blood Cell Count 4.06 10^6/uL (4.20-5.40); Red Cell Dist. Width 13.4 % (11.5-14.5); White Blood Cell Count 7.7 10^3/uL (4.8-10.8)
[2023-11-06 07:30] VITALS: BP 166/103
[2023-11-06] MEDS: ELIQUIS 5 MG PO (08:35)
[2023-11-06] MEDS: BETAPACE 80 MG PO (08:35)
[2023-11-06] MEDS: OSCAL 500 + D 500 MG PO (08:36)
[2023-11-06] MEDS: OMNICEF 300 MG PO (08:36)
[2023-11-06] MEDS: COLACE 100 MG PO (08:36)
[2023-11-06 10:35] LABS: Blood Urea Nitrogen 32 mg/dl (7-17); Calcium 9.6 mg/dl (8.4-10.2); Carbon Dioxide 27 mmol/L (22-30); Chloride 106 mmol/L (98-107); Estimated Creatinine Clearance 38 ml/min; Glucose 142 mg/dl (70-99); Potassium 4.7 mmol/L (3.5-5.1); Sodium 141 mmol/L (135-145); eGFR 55.21
[2023-11-06 11:10] VITALS: BP 142/86
[2023-11-06] MEDS: MOLNUPIRAVIR (EUA) 800 MG PO (11:14)
--- NOTE | 2023-11-06 11:18 | W.PN.HOSP.TC ---
Today's Communication/Plan
-
monitor vitals
see plan
weaned off o2; on room air
dc today
cw PO abx
Daughter updated over the phone
time of discharge 38 minutes
Assessment / Plan
Assessment / Plan
General: Well Developed, Well Nourished, No Apparent Distress, Comfortable and Other (Hard of hearing)
HEENT: NormoCephalic, Anicteric and Moist mucous membranes
Respiratory: Clear
Cardiac: S1/S2 and Regular Rhythm
Breast: Deferred by me
GI: Soft, Non Tender and Non Distended
Musculoskeletal: No Edema
Neuro: Awake, Alert and Oriented
Psych: Calm
COVID-19 infection -no evidence of pneumonia. Started molnupiravir 800 mg twice daily, 5 days total. Michael interacts with her Eliquis.
Not appreciably hypoxic, hold off on steroids. Last vaccinated in 2021. Suspect her granddaughter was ill a few days prior to onset of this patient's symptoms. Spoke with family and recommend that all family members get tested for COVID.
Acute hypoxic respiratory insufficiency likely secondary to COVID with associated bronchitis
Albuterol as needed
Started Decadron
Was on 4 L, now on room air. Wean oxygen as tolerated
Ambulatory dysfunction -with history of stroke. More weak now due to acute infection with COVID. now weakness improving; PT/OT rec home
Possible urinary tract infection -cw cefdinir
CAD/CABG -stable. Continue home meds.
Paroxysmal atrial fibrillation -continue sotalol, Eliquis. Sotalol dose decreased to daily per pharmacy recommendation given creatinine clearance. once creatinine clearance > 60 persistently then will increase back to 80 mg twice daily
essential HTN
hydralazine prn
on sotalol
History of stroke
Hyperlipidemia -continue atorvastatin.
Hypothyroidism -continue levothyroxine.
Myasthenia gravis
History of endometrial cancer -treated with hysterectomy and radiation.
Spinal stenosis
Full code
Anticipated Discharge: Today
Subjective/Interval History
-
Date of Service: November 06, 2023
denies pain
Objective Data
-
Labs:
Laboratory Results
11/06/23 11/06/23
05:02 09:20
WBC 7.7
Hgb 12.2
Hct 36.9 L
Plt Count 257
Sodium Cancelled 141
Potassium Cancelled 4.7
Chloride Cancelled 106
Carbon Dioxide Cancelled 27
BUN Cancelled 32 H
Creatinine Cancelled 1.0
Glucose Cancelled 142 H
Calcium Cancelled 9.6
Vital Signs:
Vital Signs
Temp Pulse Resp BP Pulse Ox
97.6 F 86 20 166/103 95
11/06/23 07:30 11/06/23 07:30 11/06/23 07:30 11/06/23 07:30 11/06/23 07:30
I&O
11/05/23 11/06/23 11/07/23
06:59 06:59 06:59
Intake Total 1570 / 1570 960 / 960
Balance 1570 / 1570 960 / 960
--- NOTE | 2023-11-06 11:36 | W.DCSUMMARY ---
Discharge Summary
Discharge Data
Date of Admission: 11/03/23
Date of Discharge: 11/06/23
-
Pending Results: No
Hospital Course
83-year-old female with past medical history of approximator fibrillation, CAD/CABG, essential hypertension, CVA, hyperlipidemia, hypothyroidism, myasthenia gravis, history of endometrial cancer, spinal stenosis came to the hospital with acute
hypoxic respiratory insufficiency which was likely thought was secondary to COVID associated bronchitis. Patient was started on molnupiravir which was also continued upon discharge to complete the course. Patient was also started on Decadron which
improved her symptoms. On discharge her Decadron was changed to oral. Due to her declining creatinine clearance her sotalol was increased to 80 mg once daily per pharmacy recommendation. Prior to discharge she was weaned off oxygen and continues
to be on room air. Since her symptoms continue to improve, she was then discharged home with instructions to follow-up with all her physicians outpatient.
Discharge Plan
-
Patient Disposition: Home (Routine Discharge)
Discharge Diagnosis/Procedures: Acute hypoxic respite insufficiency secondary to COVID
Urinary tract infection
Condition: Good
Diet: As tolerated
Activity: As tolerated
Driving Restrictions: As prior to admission
Bathing Restrictions: None
Others Tests: Chest x-ray in 4 weeks to ensure resolution
Referrals:
Stevie Valadez, [Family Provider] - in less than 1 week
Prescriptions:
New
Lagevrio (EUA) 200 mg Capsule
800 mg PO BID Qty: 4 0RF
cefdinir 300 mg Capsule
300 mg PO Q12 Qty: 6 0RF
albuterol sulfate 90 mcg/actuation Hfa Aerosol Inhaler
1 puff inhalation R Q4HPRN PRN (Reason: sob or wheezing) Qty: 6.7 0RF
dexamethasone 6 mg tablet
6 mg PO DAILY Qty: 8 0RF
Continued
atorvastatin 40 mg Tablet
40 mg PO HS
levothyroxine 25 mcg Tablet
25 mcg PO DAILY
Eliquis 5 mg Tablet
5 mg PO BID
Patient Comments:
11/03/2023- currently taking free sample
acetaminophen [Tylenol Extra Strength] 500 mg Tablet
1,000 mg PO Q6HPRN PRN (Reason: mild pain)
calcium carbonate-vitamin D3 [Calcium 500 + D] 500 mg-10 mcg (400 unit) Tablet,Chewable
1 tab PO DAILY
Centrum Silver Women 8 mg iron-400 mcg-50 mcg Tablet
1 tab PO DAILY
docusate sodium 100 mg Capsule
100 mg PO BID 30 Days Qty: 60 0RF
Changed
sotalol 80 mg Tablet
80 mg PO DAILY Qty: 0 0RF
Discontinued
cephalexin 500 mg Capsule
500 mg PO BID
Patient Comments:
11/03/23: started 11/02/23, to take 1 cap twice a day for 10 days
Discharge Orders:
Discharge Patient (As Directed); Ordered 11/06/23
Ordered By: Ernie Azar
Discharge Date and Time
Discharge Date/Time: 11/06/23 13:39
Print Language: LITHUANIAN
--- NOTE | 2023-11-06 12:15 | CM ---
Reviewed the chart notes and spoke with the patient's daughter via telephone. Patient is for discharge to home today and will follow-up with outpatient therapy. Patient's daughter to provide transportation. CM continues to be available to
patient/family and is monitoring medical plan for needs at discharge.
Plan: Discharge to home today.
== END 2023-11-06 13:39 | disposition home or self-care (01) | DRG 178 ==
LOC: 2 NORTH 14:24
PROVIDERS: Physician Assistant; ADMITTING PHYSICIAN Hospitalist; ATTENDING PHYSICIAN Internal Medicine; EMERGENCY PHYSICIAN Emergency Medicine; FAMILY PHYSICIAN Family Medicine
DX: U07.1 COVID-19 (principal); I69.354 Hemiplegia and hemiparesis following cerebral infarction affecting left non-dominant side; N39.0 Urinary tract infection, site not specified; J20.8 Acute bronchitis due to other specified organisms; B96.20 Unspecified Escherichia coli [E. coli] as the cause of diseases classified elsewhere; E03.9 Hypothyroidism, unspecified; I25.10 Atherosclerotic heart disease of native coronary artery without angina pectoris; I10 Essential (primary) hypertension; G70.00 Myasthenia gravis without (acute) exacerbation; I48.0 Paroxysmal atrial fibrillation; Z85.42 Personal history of malignant neoplasm of other parts of uterus; Z95.1 Presence of aortocoronary bypass graft; Z79.01 Long term (current) use of anticoagulants
CPT/HCPCS: 71046; 80048; 80053; 81003; 81015; 85025; 87086; 87088; 87186; 87811; 93005; 94640; 96374; 97162; 97166; 97530; 99285

== ENCOUNTER 2024-08-24 09:44 | Emergency (ER) | payer MEDICARE, OTHER, SELFPAY ==
[2024-08-24 09:55] VITALS: BP 151/74
--- NOTE | 2024-08-24 10:39 | ED.GENMED ---
History of Present Illness
General
Chief Complaint: Throat Problem
Source: patient
Exam Limitations: none
Time Seen by Provider: 08/24/24 10:39
Nursing documentation reviewed up to this point in time: agreed with
History of Present Illness
History of Present Illness:
84-year-old female with history of A-fib on Eliquis, CAD/CABG, HTN, CVA with residual left side weakness, HLD, hypothyroid, myasthenia gravis, endometrial cancer history, spinal stenosis presents for difficulty swallowing while.
States while visiting son in [place] last week was having trouble swallowing. She chewed her food well and had to drink something every time to get the food down.
She has been waking up in the mornings feeling like she has to clear her throat but unable to and feels something down in her throat.
08/09 is the day symptoms started while eating pizza, went to [facility], no testing done, and told to f/u with GI.
Able to swallow saliva, mouth has been very dry, denies n/v.
Past History
Past History
ED Past Medical History: Arrthythmia (AFib), CAD, Cancer (Endometrial), HTN, Hypercholesterolemia and Hypothyroidism
ED Past Surgical History: Cardiac (CABG x3), Gynecological (CHANTELLE), Orthopedic (Lumbar laminectomy L3-5) and Other (cataracts)
Social History
Tobacco: Non-smoker
Alcohol: Other
Drug: None
Personal:
Living: alone
Employment: Retired
Family History
Family History: Other (reviewed and non-contributory)
Review of Systems
Review of Systems
Allergies reviewed?: Yes
All Other Systems: ROS reviewed and negative except as documented in HPI and ROS
Constitutional: Denies fever or fatigue
EENT: Denies sore throat (has difficulty swallowing)
Respiratory: Denies cough or trouble breathing
Cardiac: Denies chest pain
ABD/GI: Denies abdominal pain, nausea, vomiting, diarrhea or constipated
: Denies dysuria, frequency or difficulty voiding
Musculoskeletal: Denies edema
Skin: Reports no symptoms
Neurological: Reports other (chronic left side weakness post CVA)
Phy Exam
Physical Exam
Physical Exam:
GENERAL: No acute distress. A&Ox3.
CONSTITUTIONAL: Afebrile.
EYES: clear, conjunctivae normal
ENMT: moist mucus membranes, Pharynx nl, swallowing well.
RESPIRATORY: Regular respirations, nonlabored, lungs clear.
CARDIOVASCULAR: Regular rate and rhythm, no murmurs, no rubs.
GI: Soft, nontender, normal BS
MUSCULOSKELETAL: Moves with ease. Well perfused.
SKIN: Warm, dry, pink
PSYCH: Normal mood and affect. Well kept, interactive and appropriate
NEUROLOGIC: Awake, alert and oriented. Speech clear. Left-sided weakness (chronic post CVA)
Course
Orders/Labs/Results
Orders:
Orders
08/24/24 10:55
CT Neck With Iv Contrast Urgent
Comment:
Reason For Exam: trouble swallowing
0.9% Sodium Chloride 500 ml [Nss] 500 ml IV BOLUS
08/24/24 10:57
Complete Blood Count/With Diff Urgent
Comprehensive Metabolic Panel Urgent
Abnormal Lab Results
08/24/24
10:57
MCHC 32.4 L g/dL
(33.0-37.0)
MPV 10.6 H fL
(7.4-10.4)
Absolute Monos (auto) 0.8 H 10^3/uL
(0.1-0.6)
Monocytes % 10.1 H %
(1.7-9.3)
Chloride 110 H mmol/L
(98-107)
Glucose 104 H mg/dl
(70-99)
08/24/24 10:57
08/24/24 10:57
Vital Signs
Initial and Last Documented VS:
Initial Vital Signs
Temp Pulse Resp BP Pulse Ox
97.7 F 57 18 151/74 96
08/24/24 09:55 08/24/24 09:55 08/24/24 09:55 08/24/24 09:55 08/24/24 09:55
Last Documented Vital Signs
Temp Pulse Resp BP Pulse Ox
97.7 F 60 16 169/86 95
08/24/24 09:55 08/24/24 13:03 08/24/24 13:03 08/24/24 13:03 08/24/24 13:03
Supervisor [employer] consulted with Physician
Supervisor [employer] consulted with physician?: Yes
Name of Physician Consulted: Ana
MDM/Problems Addressed
Differential Diagnosis Includes:
esophageal stricture, mass, myasthenia gravis
MDM/Problems Addressed:
84-year-old female with history of A-fib on Eliquis, CAD/CABG, HTN, CVA with residual left side weakness, HLD, hypothyroid, myasthenia gravis, endometrial cancer history, spinal stenosis presents for difficulty swallowing while.
States while visiting son in [place] last week was having trouble swallowing. She chewed her food well and had to drink something every time to get the food down.
She has been waking up in the mornings feeling like she has to clear her throat but unable to and feels something down in her throat.
08/09 is the day symptoms started while eating pizza, went to [facility], no testing done, and told to f/u with GI.
Able to swallow saliva, mouth has been very dry, denies n/v.
NAD, pleasant
11:30 AM
CBC normal
CMP unremarkable
1:40 PM: CT neck with IV contrast radiology report read: IMPRESSION:
Enlarged multinodular thyroid gland, stable compared to the previous CT head and neck angiogram from 06/15/2023.
[address] CT evidence for an acute abnormality of the neck.
Patient referred to GI and message sent to GI front dest to get her in sooner.
Patient drinking water with ease.
Daughter and pt comfortable going home, GI sent message back that they will give pt a call.
2:45 PM:
I was just notified that Pt scheduled for 09/[address] Turner
Chronic conditions affecting care: HTN, Arrhythmia (on Eliquis) and Neurological disorder (Myasthenia gravis (eye involvement only))
*Critical Care Note
Total Time (30-74mins, 75-104mins- exclusive of procedures): Not Applicable
Patient Management
Social determinants of health affecting care: Strong social support
ED Attending Note
-
Portions of this chart may have been created with voice recognition software.� Occasional wrong word or��sound alike� substitutions may have occurred due to the inherent limitations of voice recognition software.
Discharge Plan
Departure
Patient Disposition: Home (Routine Discharge)
Date of Disposition: 08/24/24
Time of Disposition: 13:42
Patient with high blood pressure during this ER visit?: No
Condition: Good
Discharge Problem:
Dysphagia
Instructions: Dysphagia (DC)
Prescriptions:
No Action
atorvastatin 40 mg Tablet
40 mg PO HS
levothyroxine 25 mcg Tablet
25 mcg PO DAILY
Eliquis 5 mg Tablet
5 mg PO BID
Patient Comments:
11/03/2023- currently taking free sample
acetaminophen [Tylenol Extra Strength] 500 mg Tablet
1,000 mg PO Q6HPRN PRN (Reason: mild pain)
calcium carbonate-vitamin D3 [Calcium 500 + D] 500 mg-10 mcg (400 unit) Tablet,Chewable
1 tab PO DAILY
Centrum Silver Women 8 mg iron-400 mcg-50 mcg Tablet
1 tab PO DAILY
Lagevrio (EUA) 200 mg Capsule
800 mg PO BID Qty: 4 0RF
cefdinir 300 mg Capsule
300 mg PO Q12 Qty: 6 0RF
albuterol sulfate 90 mcg/actuation Hfa Aerosol Inhaler
1 puff inhalation R Q4HPRN PRN (Reason: sob or wheezing) Qty: 6.7 0RF
dexamethasone 6 mg tablet
6 mg PO DAILY Qty: 8 0RF
sotalol 80 mg Tablet
80 mg PO DAILY Qty: 0 0RF
docusate sodium 100 mg Capsule
100 mg PO BID 30 Days Qty: 60 0RF
Referrals:
Juliano Calle MD [Active] - Next open appointment
Stevie Valadez DO [Family Provider] -
Activity Restrictions/Additional Instructions:
As we discussed, see the GI doctor, next available appointment.
I requested an appointment for you YULIANA and you should be getting a phone call for appointment.
Return here immediately for trouble breathing, inability to swallow your saliva or feeling worse in any way.
Interventions
Interventions:
*Risk Screen - Suicide Last Done: 08/24/24 11:07
*General Assessment Last Done: 08/24/24 11:07
*Nursing Disposition Last Done: 08/24/24 13:58
ED-EENT Assessment Last Done: 08/24/24 11:11
ED- Pulmonary Assessment Last Done: 08/24/24 11:11
Discharge Date and Time
Discharge Date/Time: 08/24/24 14:05
Print Language: SERBIAN
[2024-08-24 10:59] VITALS: BMI 30.3
[2024-08-24] MEDS: NSS 500 IV (11:04)
[2024-08-24 11:16] LABS: % Basophils 0.1 % (0-2); % Eosinophils 1.4 % (0-6); % Immature Granulocytes 0.4 % (0-0.5); % Monocytes 10.1 % (1.7-9.3); Absolute Eosinophils 0.1 10^3/uL (0-0.7); Absolute Lymphocytes 1.6 10^3/uL (1.2-3.4); Absolute Monocytes 0.8 10^3/uL (0.1-0.6); Absolute Neutrophils 5.1 10^3/uL (1.4-6.5); Hematocrit 41.7 % (37.0-47.0); Hemoglobin 13.5 g/dL (12.0-16.0); Mean Corp Hgb Conc. 32.4 g/dL (33.0-37.0); Mean Corpuscular Hgb 29.8 pg (27.0-31.0); Mean Corpuscular Volume 92.1 fL (81.0-99.0); Mean Platelet Volume 10.6 fL (7.4-10.4); Nucleated Red Blood Cells % 0 %; Platelet Count 232 10^3/uL (130-400); Red Blood Cell Count 4.53 10^6/uL (4.20-5.40); Red Cell Dist. Width 13.2 % (11.5-14.5); White Blood Cell Count 7.7 10^3/uL (4.8-10.8)
[2024-08-24 11:30] LABS: ALT (SGPT) 16 U/L (0-35); AST (SGOT) 19 U/L (14-36); Albumin 3.8 g/dl (3.5-5.0); Alkaline Phosphatase 56 U/L (38-126); Blood Urea Nitrogen 16 mg/dl (7-17); Calcium 9.5 mg/dl (8.4-10.2); Carbon Dioxide 30 mmol/L (22-30); Chloride 110 mmol/L (98-107); Estimated Creatinine Clearance 38 ml/min; Glucose 104 mg/dl (70-99); Potassium 4.3 mmol/L (3.5-5.1); Sodium 145 mmol/L (135-145); Total Bilirubin 0.7 mg/dl (0.2-1.3); Total Protein 6.4 g/dl (6.3-8.2); eGFR 54.87
[2024-08-24 13:03] VITALS: BP 169/86
== END 2024-08-24 14:05 | disposition home or self-care (01) ==
LOC: EMR 09:44
PROVIDERS: Registered Nurse; EMERGENCY PHYSICIAN Emergency Medicine; FAMILY PHYSICIAN Family Medicine
DX: R13.10 Dysphagia, unspecified (principal); E03.9 Hypothyroidism, unspecified; E78.00 Pure hypercholesterolemia, unspecified; I25.10 Atherosclerotic heart disease of native coronary artery without angina pectoris; I10 Essential (primary) hypertension; I48.91 Unspecified atrial fibrillation; I69.354 Hemiplegia and hemiparesis following cerebral infarction affecting left non-dominant side; G70.00 Myasthenia gravis without (acute) exacerbation; Z79.01 Long term (current) use of anticoagulants; Z95.1 Presence of aortocoronary bypass graft; Z90.710 Acquired absence of both cervix and uterus
CPT/HCPCS: 96360; 99284; 70491; 80053; 85025; Q9967

== ENCOUNTER → 2024-09-25 08:36 | Outpatient (REF) | payer MEDICARE, OTHER, SELFPAY | LOC: RST 08:36 | PROVIDERS: ATTENDING PHYSICIAN Internal Medicine | DX: R13.19 Other dysphagia (principal); Z86.73 Personal history of transient ischemic attack (TIA), and cerebral infarction without residual deficits | CPT/HCPCS: 74230; 74246; 92611 ==

== ENCOUNTER → 2024-11-05 15:33 | Outpatient (REF) | payer MEDICARE, OTHER, SELFPAY ==
[2024-11-05 16:20] LABS: Hematocrit 44.3 % (37.0-47.0); Hemoglobin 14.1 g/dL (12.0-16.0); Mean Corp Hgb Conc. 31.8 g/dL (33.0-37.0); Mean Corpuscular Volume 95.1 fL (81.0-99.0); Nucleated Red Blood Cells % 0 %; Platelet Count 259 10^3/uL (130-400); Red Cell Dist. Width 15.0 % (11.5-14.5)
[2024-11-05 16:35] LABS: ALT (SGPT) 28 U/L (0-35); AST (SGOT) 20 U/L (14-36); Albumin 3.8 g/dl (3.5-5.0); Alkaline Phosphatase 53 U/L (38-126); Blood Urea Nitrogen 26 mg/dl (7-17); Calcium 9.8 mg/dl (8.4-10.2); Carbon Dioxide 31 mmol/L (22-30); Chloride 106 mmol/L (98-107); Glucose 111 mg/dl (70-99); Potassium 5.7 mmol/L (3.5-5.1); Sodium 140 mmol/L (135-145); Total Protein 6.3 g/dl (6.3-8.2); eGFR 48.94
[2024-11-05 18:47] LABS: Hepatitis B Surface Antigen Negative (Negative)
[2024-11-05 19:04] LABS: Hepatitis C Antibody Negative (Negative)
[2024-11-06 07:17] LABS: Glycohemoglobin (HgbA1c) 5.5 % (4.0-5.6)
== END ==
LOC: REG 15:33
PROVIDERS: ATTENDING PHYSICIAN Psychiatry & Neurology Neurology; FAMILY PHYSICIAN Family Medicine
DX: G70.01 Myasthenia gravis with (acute) exacerbation (principal); R13.19 Other dysphagia
CPT/HCPCS: 36415; 80053; 82784; 83036; 85025; 86803; 87340

== ENCOUNTER 2025-02-23 10:28 | Emergency (ER) | payer MEDICARE, OTHER, SELFPAY ==
[2025-02-23 10:35] VITALS: BP 163/67
[2025-02-23 11:08] VITALS: BP 135/65
--- NOTE | 2025-02-23 11:14 | ED.GENMED ---
History of Present Illness
General
Chief Complaint: Fall
Source: patient
Exam Limitations: none
Time Seen by Provider: 02/23/25 11:09
Nursing documentation reviewed up to this point in time: agreed with
History of Present Illness
History of Present Illness:
Patient is a 4-year-old female past with a history of A-fib, CVA on Eliquis presents for fall. Patient was outside and lost her footing and fell landing on her knees and her left chest. She did hit the forehead on the ground. She denies loss of
consciousness. She did crawl was able to get herself up. She complains of pain to the anterior chest rib area worse with movement deep breath. She denies any headache loss of consciousness. She denies any nausea vomiting neck pain. She does
have mild discomfort to the rib area with moving and taking a deep breath.
Past History
Past History
ED Past Medical History: Arrthythmia (AFib), CAD, Cancer (Endometrial), HTN, Hypercholesterolemia and Hypothyroidism
ED Past Surgical History: Cardiac (CABG x3), Gynecological (CHANTELLE), Orthopedic (Lumbar laminectomy L3-5) and Other (cataracts)
Social History
Tobacco: Non-smoker
Alcohol: Other
Drug: None
Personal:
Living: alone
Employment: Retired
Family History
Family History: Other (reviewed and non-contributory)
Phy Exam
General Physical Exam
General Presentation: no apparent distress
General age: appears stated age
General Skin: warm and dry
General Habitus: normal
General Mental: alert
General Hydration: appears well hydrated
Cardiovascular Exam
Cardiovascular Exam: regular rate/rhythm and no murmur
Pulmonary Exam
Pulmonary Exam: no respiratory distress and other (+ anterior/lateral left sided rib discomfort no ecchymosis or abrasions )
Gastrointestinal Exam
Gastrointestinal Exam: non tender, soft and other (no abd pain specifically no right upper or left upper quadrant tenderness)
Neurological Exam
Neurological Exam: alert, oriented x3, no motor deficits and no sensory deficits
Musculoskeletal Exam
Musculoskeletal Exam: full ROM and other (No obvious head injury no bony C-spine tenderness full range of motion to all upper and lower extremities bilaterally)
Skin Exam
Skin Exam: normal color and warm/dry
Psychiatric Exam
Psychiatric Exam: normal mood/affect
Course
Orders/Labs/Results
Orders:
Orders
02/23/25 10:39
EKG [Electrocardiogram (*1)] Urgent
Reason for Study: Chest Pain
02/23/25 10:40
EKG- Treatment ONCE
02/23/25 11:23
CT Cervical Spine W/o Iv Contr Urgent
Comment:
Reason For Exam: trauma
CT Head W/o Iv Contrast Urgent
Comment:
Reason For Exam: trauma
02/23/25 11:24
CT Chest With Iv Contrast Urgent
Comment:
Reason For Exam: trauma
Cardiac Monitoring- Treatment ONCE
0.9% Sodium Chloride 500 ml [Nss] 500 ml IV BOLUS
02/23/25 11:40
Complete Blood Count/With Diff Urgent
Comprehensive Metabolic Panel Urgent
02/23/25 16:09
Lidocaine [Lidocaine 4% Patch] 1 patch TOPICAL ONCE ONE
Apply Lidocaine patch(s) to:: left anterior/latera rib
Abnormal Lab Results
02/23/25
11:40
WBC 13.2 H 10^3/uL
(4.8-10.8)
MCHC 31.4 L g/dL
(33.0-37.0)
Absolute Neuts (auto) 10.0 H 10^3/uL
(1.4-6.5)
Absolute Monos (auto) 1.1 H 10^3/uL
(0.1-0.6)
Neutrophils % 75.5 H %
(42.2-75.2)
Lymphocytes % 14.4 L %
(20.5-51.1)
Carbon Dioxide 35 H mmol/L
(22-30)
BUN 21 H mg/dl
(7-17)
Total Protein 5.0 L g/dl
(6.3-8.2)
Albumin 3.3 L g/dl
(3.5-5.0)
02/23/25 11:40
02/23/25 11:40
Vital Signs
Initial and Last Documented VS:
Initial Vital Signs
Temp Pulse Resp BP Pulse Ox
97.5 F 62 16 163/67 98
02/23/25 10:35 02/23/25 10:35 02/23/25 10:35 02/23/25 10:35 02/23/25 10:35
Last Documented Vital Signs
Temp Pulse Resp BP Pulse Ox
97.5 F 62 16 103/93 96
02/23/25 10:35 02/23/25 13:30 02/23/25 13:30 02/23/25 13:00 02/23/25 13:30
MDM/Problems Addressed
Differential Diagnosis Includes:
Not limited to rib contusion versus fracture
MDM/Problems Addressed:
Patient is an 84-year-old female who describes mechanical trip and fall landed on her ribs. Patient is tender to anterior lateral rib area no upper abdominal tenderness no ecchymosis or crepitus. ct head/neck neg. pt denies headache, normal
neurologic exam no vomiting. CAT scan of the chest was done and negative for acute trauma no fracture very small left lower effusion incidental enlarged thyroid will have patient follow-up with the ultrasound was recommended. additional findings
reviewed. pt is well appearing will dc w/ tylenol /lidocaine patch
Chronic conditions affecting care:
Patient is on Eliquis for A-fib
*Radiology
Radiology exam reviewed: radiology read reviewed
*Pulse Oximetry
SaO2: 98
Oxygen Mode of Delivery: Room air
Patient hypoxic: no
*EKG
Interpreted by ED Provider?: Yes
Heart Rate: 63
Rate: normal
Rhythm: sinus
Ischemia: non-specific ST changes
*Critical Care Note
Total Time (30-74mins, 75-104mins- exclusive of procedures): Not Applicable
ED Attending Note
-
Portions of this chart may have been created with voice recognition software.� Occasional wrong word or��sound alike� substitutions may have occurred due to the inherent limitations of voice recognition software.
Discharge Plan
Departure
Patient Disposition: Home (Routine Discharge)
Date of Disposition: 02/23/25
Time of Disposition: 16:10
Patient with high blood pressure during this ER visit?: No
Condition: Fair
Covid-19: Not Applicable
Discharge Problem:
Contusion of rib, Fall
Instructions: Contusion (DC), Preventing falls in adults
Prescriptions:
New
lidocaine 5 % adhesive patch,medicated
1 patch topical DAILY Qty: 15 0RF
Rx Instructions:
remove after 12 hrs
No Action
atorvastatin 40 mg Tablet
40 mg PO HS
levothyroxine 25 mcg Tablet
25 mcg PO DAILY
Eliquis 5 mg Tablet
5 mg PO BID
Patient Comments:
11/03/2023- currently taking free sample
acetaminophen [Tylenol Extra Strength] 500 mg Tablet
1,000 mg PO Q6HPRN PRN (Reason: mild pain)
calcium carbonate-vitamin D3 [Calcium 500 + D] 500 mg-10 mcg (400 unit) Tablet,Chewable
1 tab PO DAILY
Centrum Silver Women 8 mg iron-400 mcg-50 mcg Tablet
1 tab PO DAILY
Lagevrio (EUA) 200 mg Capsule
800 mg PO BID Qty: 4 0RF
cefdinir 300 mg Capsule
300 mg PO Q12 Qty: 6 0RF
albuterol sulfate 90 mcg/actuation Hfa Aerosol Inhaler
1 puff inhalation R Q4HPRN PRN (Reason: sob or wheezing) Qty: 6.7 0RF
dexamethasone 6 mg tablet
6 mg PO DAILY Qty: 8 0RF
sotalol 80 mg Tablet
80 mg PO DAILY Qty: 0 0RF
docusate sodium 100 mg Capsule
100 mg PO BID 30 Days Qty: 60 0RF
Referrals:
Stevie Valadez DO [Family Provider, Family Practice]
Activity Restrictions/Additional Instructions:
As discussed you may take Tylenol for discomfort. Ice the affected area for the next 24 hours 20 minutes at a time several times a day. In addition lidocaine patches were sent to the pharmacy. I sent 5% lidocaine patches to the pharmacy however
if your insurance does not cover this you may buy [id number] patches as well. Follow-up closely with your family doctor in the next 2 days and return if any worsening of symptoms.
Interventions
Interventions:
*Risk Screen - Suicide Last Done: 02/23/25 10:35
*General Assessment Last Done: 02/23/25 11:39
*Neglect/Abuse Screening Last Done: 02/23/25 10:35
*ED COVID-19 Vaccine History Last Done: 02/23/25 11:39
*ED Influenza Vaccine History Last Done: 02/23/25 11:39
ED-Musculoskeletal Assessment Last Done: 02/23/25 12:21
ED- Neurological Assessment Last Done: 02/23/25 12:21
ED-Skin Assessment Last Done: 02/23/25 12:21
Discharge Date and Time
Print Language: SLOVENIAN
[2025-02-23] MEDS: NSS 500 IV (11:38)
[2025-02-23 11:39] VITALS: BMI 30.9
[2025-02-23 12:00] VITALS: BP 126/59
[2025-02-23 12:04] LABS: Hematocrit 43.3 % (37.0-47.0); Hemoglobin 13.6 g/dL (12.0-16.0); Mean Corp Hgb Conc. 31.4 g/dL (33.0-37.0); Mean Corpuscular Volume 97.1 fL (81.0-99.0); Nucleated Red Blood Cells % 0 %; Platelet Count 264 10^3/uL (130-400); Red Cell Dist. Width 13.9 % (11.5-14.5)
[2025-02-23 12:14] LABS: ALT (SGPT) 20 U/L (0-35); AST (SGOT) 17 U/L (14-36); Albumin 3.3 g/dl (3.5-5.0); Alkaline Phosphatase 49 U/L (38-126); Blood Urea Nitrogen 21 mg/dl (7-17); Calcium 9.5 mg/dl (8.4-10.2); Carbon Dioxide 35 mmol/L (22-30); Chloride 104 mmol/L (98-107); Estimated Creatinine Clearance 43 ml/min; Glucose 86 mg/dl (70-99); Potassium 4.0 mmol/L (3.5-5.1); Sodium 140 mmol/L (135-145); Total Protein 5.0 g/dl (6.3-8.2); eGFR > 60.00
[2025-02-23 13:00] VITALS: BP 103/93
[2025-02-23 15:00] VITALS: BP 137/73
[2025-02-23 16:00] VITALS: BP 134/64
[2025-02-23] MEDS: TYLENOL 650 MG PO (16:31)
[2025-02-23] MEDS: LIDOCAINE 4% PATCH 1 PATCH TOPICAL (16:31)
== END 2025-02-23 16:40 | disposition home or self-care (01) ==
LOC: EMR 10:28
PROVIDERS: Nurse Practitioner; EMERGENCY PHYSICIAN Emergency Medicine; FAMILY PHYSICIAN Family Medicine
DX: S20.212A Contusion of left front wall of thorax, initial encounter (principal); W01.198A Fall on same level from slipping, tripping and stumbling with subsequent striking against other object, initial encounter; E04.9 Nontoxic goiter, unspecified; I25.810 Atherosclerosis of coronary artery bypass graft(s) without angina pectoris; I48.91 Unspecified atrial fibrillation; I10 Essential (primary) hypertension; E78.00 Pure hypercholesterolemia, unspecified; E03.9 Hypothyroidism, unspecified; Z79.01 Long term (current) use of anticoagulants; Z86.73 Personal history of transient ischemic attack (TIA), and cerebral infarction without residual deficits; Z95.1 Presence of aortocoronary bypass graft; Z85.42 Personal history of malignant neoplasm of other parts of uterus
CPT/HCPCS: 99284; 96360; 70450; 71260; 72125; 80053; 85025; 93005; Q9967